=== PATIENT | female | born 1960 | race Hispanic/Latino ===

== ENCOUNTER 2016-07-09 07:58 | Day surgery (SDC) | payer OTHER ==
[2016-06-09 09:57] VITALS: BMI 25.7
[~2016-07-09 07:58] MED LIST: Bupivacaine HCl 0.5% PF (10 ml) Inj ONE; Lidocaine 2% Inj (20ml) ONE; ceFAZolin IV 1 gm in Dextrose 50 ML IVPB ONE; ceFAZolin IV 2 gm in Dextrose 0 ML IVPB ONE
[2016-07-09] MEDS ORDERED: Propofol 10 mg/ml Inj (20 ML) ONE ×2 (09:54→11:01)
[2016-07-09] MEDS ORDERED: Midazolam 2 MG/2 ML VIAL ONE (09:54)
[2016-07-09] MEDS ORDERED: Lactated Ringer's 1,000 ML IV ONE (09:55)
[2016-07-09] MEDS ORDERED: HYDROmorphone 0.5 mg/0.5 ml ISec IVP PRN ×2 (10:09→12:07)
[2016-07-09] MEDS ORDERED: Bacitracin Ointment 30 GM TUBE ONE (10:38)
[2016-07-09] MEDS ORDERED: Oxycodone/Acetaminophen 5/325 mg Tab PO PRN (11:40)
--- NOTE | 2016-07-09 11:40 | PCM.SURG1 ---
Surgeon's Initial Post Op Note - Surgeon's Notes Surgeon: Osmel ROBBINS Gear Straightener: Jarrett PGY3 Type of Anesthesia: IV Sedation, Local Pre-Operative Diagnosis: Painful bunion deformity, left foot Operative Findings: See dictation Post-Operative Diagnosis: SAME Operation Performed: Bunionectomy, left Specimen/Specimens Removed: Bone, 1st metatarsal, left Estimated Blood Loss: EBL {In ML}: 3 Blood Products Given: N/A Drains Used: No Drains Post-Op Condition: Good Date of Surgery/Procedure: 07/09/16 Time of Surgery/Procedure: 09:30
--- NOTE | 2016-07-09 11:40 | CP.PCM.PN ---
Subjective - Date & Time of Evaluation Date of Evaluation: 07/09/16 Time of Evaluation: 09:00 - Subjective Subjective: 56 y/o female presents to [facility] for surgical intervention of painful bunion deformity, left foot. Patient states that the deformity has been present for many years and causes her pain with ambulation and pressure when wearing shoegear. Patient states that pain is alleviated with rest. The patient denies any nausea, vomiting, fever, or chills. Patient states that she had the same procedure performed on her right foot a year ago. Objective - Additional Findings Additional findings: Vascular: DP and PT pulses palpable 2/4. With CFT < 3 seconds to all digits. Skin temperature is warm to warm from proximal to distal. Pedal hair growth noted. Mild rythema and edema noted to 1st MPJ. Neuro: Pain sensation intact. Protective sensation intact. (-) Tinels. Derm: No open lesions noted. Hyperkaeratotic lesion noted to medial aspect 1st metatarsal head. Diffuse xerosis noted. Musc/Biomech: Patient presents ambulating in with normal gait. Left shoulder 1 cm higher than right, with with left hip slightly slower than right during gait. Normal heel strike and heel off noted. Flexor stabilization noted to digits 2-5, B/L. Ankle joint dorsiflexion <10 degrees with knee extended, and increased with knee flexed. No pain or crepitus noted. No pain with palpation of lateral or medial ankle ligaments. Negative anterior drawer sign and no talar tild noted. STJ ROM is 20:10, Inv:Ev, without pain or crepitus. Hypermobility noted to 1st ray, patient relates no pain at 1st tarsometatarsal joint. Decreased 1st MPJ ROM with pain and no crepitus. Hard end ROM with dorsiflexion of 1st MPJ. Pain with palpation of 1st MPJ at dorsal and medical eminence. EHL muscle strength 5/5. EDL muscle strength 4/5. Flexors muscle strength 5/5. Subluxation of 1st MPJ, with lateral deviation of hallux. Subluxation of mpjs 2-5 with flexible contracture noted to PIPJs of digits 2-5. Assessment and Plan - Assessment and Plan (Free Text) Assessment: 56 y/o female seen in [facility] for surgical intervention of painful left foot bunion deformity - Patient seen and evaluated in [facility]. CHart reviewed. - Biomechanical performed. - Discussed surgical procedure with patient. Reviewed all risks, benefits, complications and alternatives to the surgical procedure. No guarantees given nor implied. - Discussed postoperative instructions with patient who verbalized understanding. - Patient is to follow up with Dr Bolivar in his office in one week. - Patient verbalized understanding.
[2016-07-09] MEDS ORDERED: Lactated Ringer's 500 ML IV ONE (12:11)
--- NOTE | 2016-07-09 12:28 | RAD ---
PROCEDURE: Left Foot Radiographs. HISTORY: s/p left foot surgery COMPARISON: None FINDINGS: BONES: Status post osteotomy fixation with metallic screw in the distal 1st metatarsal. There is moderate degenerative osteoarthrosis with reduced joint space and marginal spurring. Bone alignment and mineralization are normal. There is a large plantar calcaneal spur. JOINTS: The joint spaces are preserved. SOFT TISSUES: There is moderate soft tissue swelling in the forefoot with soft tissue defect anteriorly in the dorsum. OTHER FINDINGS: None. IMPRESSION: Status post osteotomy and fixation in the distal 1st metatarsal with a metallic screw. Moderate forefoot soft tissue swelling with a soft tissue defect anteriorly in the dorsum. Moderate degenerative osteoarthrosis in the 1st MTP joint. Large plantar calcaneal spur.
[2016-07-09 16:19] VITALS: O2SAT 100
[2016-07-09 16:20] VITALS: BP 109/77; PULSE 69; RESP 19; TEMP 98.3
--- NOTE | 2016-07-11 10:53 | OP ---
PROCEDURE DATE: 07/09/2016 SURGEON: Hank Bolivar DPM TYPE BAR AND SEGMENT ASSEMBLER: Lavern Roger, PGY-3. ANESTHESIA: IV sedation with local anesthesia. PREOPERATIVE DIAGNOSES: Hallux abductovalgus deformity/hallux limitus deformity, left foot. POSTOPERATIVE DIAGNOSES: Hallux abductovalgus deformity/hallux limitus deformity, left foot. PROCEDURE: Decompressional distal osteotomy with screw fixation, first metatarsal, left foot. INDICATIONS: The patient is a 56-year-old female with the above-mentioned diagnosis. The patient torres s exhausted all conservative treatment at this time and is now requesting surgical intervention. The patient signed the consent after careful explanation of all risks, benefits, complications and alter natives to the surgical procedure. No guarantees were given nor implied. PREPARATION: The patient was brought to the operating room, placed on the operating room table in th e supine position. A well-padded pneumatic ankle tourniquet was applied to the patient's left ankle in the supramalleolar position. After induction of IV sedation, the patient received a total of 20 m L of a 1:1 mixture 0.5% Marcaine plain in local block fashion to patient's first metatarsal. Once lo temo anesthesia was achieved, the patient's left lower extremity was then prepped and draped in usual sterile manner. At this time, the patient's left lower extremity was exsanguinated with Esmarch and pneumatic ankle tourniquet inflated to 250 mmHg and the procedure began. PROCEDURE #1: Decompressional distal osteotomy with screw fixation first metatarsal, left foot. Att ention was directed to the dorsal aspect of the patient's first metatarsophalangeal joint. Utilizing a #15 blade, a 6 cm linear longitudinal incision was created medial and parallel to the tendon of th e extensor hallucis longus involving the contour of the deformity. The incision was deepened through subcutaneous tissue with care being taken to identify and retract all vital neurovascular structures . All bleeders were cauterized and ligated as necessary. At this time, an L-type capsulotomy was cr eated overlying the first metatarsophalangeal joint. Utilizing sharp and blunt dissection, the capsu lar and periosteal tissues were carefully reflected free of their osseous attachments and reflected m edially and laterally exposing the head and shaft of the first metatarsal into the operative site. A t this time, utilizing a sagittal saw, all medial and dorsal prominences were carefully resected and passed from the operative field. Next, attention was directed to the medial side of the patient's fi rst metatarsal head where a through and through V-type osteotomy was created in the metaphyseal regio n of the patient's first metatarsal head. There was a through and through V-type osteotomy with the apex pointing distally and the pointing plantarly proximally and plantarly dorsally. The dorsa l arm was made longer to accommodate internal fixation. Also, a thin parallel cut was made to the do rsal arm to allow for a wedge of bone to be removed as well as decompression of the first metatarsoph alangeal joint. At this time, the patient's distal aspect of the osteotomy was distracted and moved laterally and then compressed onto the shaft of the first metatarsal. The first metatarsophalangeal joint was taken through a range of motion and range of motion was noted to have significantly increas ed. The osteotomy was then temporarily fixated utilizing a 0.062 K-wire and then following standard AO principles and techniques, the osteotomy was fixated utilizing a 14 mm size 16 Synthes cortical sc rew with excellent compression noted. All temporary fixation was removed. The incision site was the n flushed with copious amounts of normal sterile saline. Attention was directed to the medial bone s haft which was resected utilizing a sagittal saw and passed from the operative field. All soft tissu e was then reapproximated and coapted utilizing 3-0 and 2-0 Vicryl. The subcutaneous tissue was reap proximated and coapted utilizing 4-0 Vicryl and skin was reapproximated and coapted utilizing 4-0 nyl on in simple suture technique. The patient received a postoperative injection of 10 mL of 0.5% Anthony ine plain in local block fashion. The incision site was dressed Adaptic and DSD. POSTOPERATIVE CONDITION: The patient tolerated the procedure and anesthesia well and was escorted to recovery with all vital signs stable and neurovascular status intact to the left foot. It is to be noted that the patient will be full weightbearing in a Cam walker and will follow up with Dr. Dinora stokes in his office in 1 week. Lavern MARTINEZ Hank Bolivar DPM cc: [id number] TT: 07/11/2016 10:52:28 [facility] # [id number] rn
== END 2016-07-09 13:26 | disposition home or self-care (01) ==
LOC: C.SDS 07:58
PROVIDERS: ATTEND Podiatrist Foot & Ankle Surgery
DX: M20.12 Hallux valgus (acquired), left foot (principal); M20.5X2 Other deformities of toe(s) (acquired), left foot
CPT/HCPCS: 28296; 73620; 88304; C1713; J0690; J1885; J2250; J2704; J3010; J7120

== ENCOUNTER 2018-03-08 09:49 | Emergency (ER) | payer MEDICAID ==
[2018-03-08 09:49] VITALS: BMI 24.0
[2018-03-08 11:20] LABS: BASO # 0.1 K/uL (0.0-0.2); BASO % 0.7 % (0.0-2.0); EOS % 0.1 % (0.0-4.0); HEMOGLOBIN 12.8 g/dL (11.0-16.0); LYMPH % 15.3 % (20.0-40.0); MEAN CELL VOLUME 93.5 fL (81.0-99.0); MEAN CORPUSCULAR HEMOGLOBIN 31.9 pg (27.0-31.0); MEAN CORPUSCULAR HGB CONC 34.1 g/dL (33.0-37.0); MEAN PLATELET VOLUME 8.4 fL (7.2-11.7); MONO # 0.9 K/uL (0.0-0.8); MONO % 6.8 % (0.0-10.0); NEUT # 10.1 K/uL (1.8-7.0); NEUT % 77.1 % (50.0-75.0); RBC 4.03 Mil/uL (3.80-5.20); RED CELL DISTRIBUTION WIDTH 13.5 % (11.5-14.5); WHITE BLOOD COUNT 13.1 K/uL (4.8-10.8)
[2018-03-08 11:34] LABS: ALB/GLOB RATIO 1.4 (1.0-2.1); ALBUMIN 4.3 g/dL (3.5-5.0); ALT/SGPT 24 U/L (9-52); AST/SGOT 42 U/L (14-36); BLOOD UREA NITROGEN 23 mg/dL (7-17); CALCIUM 9.1 mg/dl (8.6-10.4); GFR NON-AFRICAN AMERICAN > 60; LIPASE 14 U/L (23-300)
--- NOTE | 2018-03-08 12:54 | C.PDOC ---
History Of Present Illness 58 years old female with PMHx of ulcer and "hole in stomach" presents to ED for complaints of epigastric pain associated with nausea, vomiting, and diarrhea that began 3 days ago. Patient states having same symptoms 2 weeks ago but she took pepto bismol and symptoms subsided then returned again. Patient also reports decreased PO intake. Denies back pain or any other complaints. Patient states she is a smoker. Past surgical hx of gallbladder removal and hand surgery. Time Seen by Provider: 03/08/18 11:22 Chief Complaint (Nursing): Abdominal Pain History Per: Patient History/Exam Limitations: no limitations Onset/Duration Of Symptoms: Days (3), Worse Since Current Symptoms Are (Timing): Still Present Location Of Pain/Discomfort: Epigastric Radiation Of Pain To:: None Quality Of Discomfort: "Pain" Associated Symptoms: Nausea, Vomiting, Diarrhea. denies: Fever, Chills Exacerbating Factors: None Alleviating Factors: None Last Bowel Movement: Today Recent travel outside of the [place]: No Abnormal Vaginal Bleeding: No Past Medical History Reviewed: Historical Data, Nursing Documentation, Vital Signs Vital Signs: Last Vital Signs Temp 98.3 F 03/08/18 10:02 Pulse 106 H 03/08/18 10:02 Resp 16 03/08/18 10:02 BP 100/68 03/08/18 10:02 Pulse Ox 97 03/08/18 10:02 - Medical History PMH: Anxiety, Arthritis, Back Problems (previous pinched nerve), Bipolar Disorder, COPD, Depression, Gall Bladder Disease, Hypothyroidism, Schizophrenia Surgical History: Cholecystectomy - [facility] GROUP PSYCHOTHERAPY (07/25/16) INTRODUCTION OF SERUM/TOX/VACCINE INTO MUSCLE, PERC APPROACH (02/12/16) Family History: States: Unknown Family Hx, Diabetes - Social History Hx Tobacco Use: Yes Hx Alcohol Use: Yes Hx Substance Use: Yes - Immunization History Hx Tetanus Toxoid Vaccination: No Hx Influenza Vaccination: Yes Hx Pneumococcal Vaccination: Yes Review Of Systems Constitutional: Negative for: Fever, Chills Gastrointestinal: Positive for: Nausea, Vomiting, Abdominal Pain (Epigastric ), Diarrhea Skin: Negative for: Rash Neurological: Negative for: Weakness, Numbness Physical Exam - Physical Exam Appears: Non-toxic, No Acute Distress Skin: Normal Color, Warm, Dry, No Rash Head: Atraumatic, Normacephalic Eye(s): bilateral: Normal Inspection, PERRL, EOMI Oral Mucosa: Moist Neck: Normal ROM, Supple Chest: Symmetrical, No Tenderness Cardiovascular: Rhythm Regular, No Murmur Respiratory: Normal Breath Sounds, No Rales, No Rhonchi, No Wheezing Gastrointestinal/Abdominal: Bowel Sounds (Active ), Soft, Tenderness (Mild epigastric ), No Distention, No Guarding, No Rebound Extremity: Normal ROM Extremity: Bilateral: Atraumatic, Normal Color And Temperature, Normal ROM Pulses: Left Radial: Normal, Right Radial: Normal Neurological/Psych: Oriented x3, Normal Speech Gait: Steady ED Course And Treatment - Laboratory Results Result Diagrams: 03/08/18 11:16 03/08/18 11:16 O2 Sat by Pulse Oximetry: 97 (RA) Pulse Ox Interpretation: Normal Medical Decision Making Medical Decision Making: Plan: * Toradol * Pepcid * Zofran * CR ABdomen& Pelvis * Blood work Disposition - Disposition Disposition Time: 14:10 Condition: STABLE Forms: [facility] (Icelandic) - Clinical Impression Clinical Impression: Abdominal wall pain - PA / WET WASH ASSEMBLER / Resident Statement MD/DO has reviewed & agrees with the documentation as recorded. - Scribe Statement The provider has reviewed the documentation as recorded by the Scribe Rashid Florence All medical record entries made by the Scribe were at my direction and personally dictated by me. I have reviewed the chart and agree that the record accurately reflects my personal performance of the history, physical exam, medical decision making, and the department course for this patient. I have also personally directed, reviewed, and agree with the discharge instructions and disposition. Physician Patient Turnover Patient Signed Over To: Anna Johnson Handoff Comments: Pending CT scan and disposition
[2018-03-08] MEDS ORDERED: Iodixanol 320 mg/ml 150 ml Bottle IV ONE (13:39)
[2018-03-08] MEDS ORDERED: Dextrose 5%/0.9% NS 1,000 ML IV ONE (14:57)
--- NOTE | 2018-03-08 16:18 | CT ---
Date of service: 03/08/2018 PROCEDURE: CT Abdomen and Pelvis with contrast HISTORY: epigastric abd pain, vomiting, diarrhea COMPARISON: None. TECHNIQUE: Contrast dose: 150 mL Visipaque 320 Radiation dose: Total exam DLP = 294.16 mGy-cm. This CT exam was performed using one or more of the following dose reduction techniques: Automated exposure control, adjustment of the mA and/or kV according to patient size, and/or use of iterative reconstruction technique. FINDINGS: LOWER THORAX: Unremarkable. LIVER: Unremarkable. No gross lesion or ductal dilatation. GALLBLADDER AND BILE DUCTS: Cholecystectomy PANCREAS: Unremarkable. No gross lesion or ductal dilatation. SPLEEN: Unremarkable. ADRENALS: Unremarkable. No mass. KIDNEYS AND URETERS: Unremarkable. No hydronephrosis. No solid mass. VASCULATURE: Unremarkable. No aortic aneurysm. There is atherosclerotic calcification of the abdominal aorta BOWEL: Unremarkable. No obstruction. No gross mural thickening. APPENDIX: Normal appendix. PERITONEUM: Unremarkable. No free fluid. No free air. LYMPH NODES: Unremarkable. No enlarged lymph nodes. BLADDER: Decompressed REPRODUCTIVE: Normal postmenopausal uterus BONES: No acute fracture. Grade 1 anterolisthesis at L4-5 likely degenerative in origin. Degenerative disc disease at L4-5 and L5-S1. OTHER FINDINGS: None. IMPRESSION: No acute abnormality. Minor findings as above.
[2018-03-08 16:19] LABS: SQUAMOUS EPITHIAL 24 /hpf (0-5); URINE BILIRUBIN 1+ (NEGATIVE); URINE BLOOD 1+ (NEGATIVE); URINE CLARITY Hazy (Clear); URINE COLOR Amber (YELLOW); URINE GLUCOSE (UA) NORMAL (Normal); URINE LEUKOCYTE ESTERASE TRACE Leu/uL (Negative); URINE PROTEIN 2+ mg/dL (NEGATIVE)
[2018-03-08 16:28] VITALS: RESP 18; TEMP 99
[2018-03-08] MEDS ORDERED: Belladonna-Phenobarbital PO STA (16:45)
[2018-03-08] MEDS ORDERED: Belladonna-Phenobarbital ONE (16:53)
[2018-03-08 17:44] VITALS: BP 111/73; PULSE 88; O2SAT 98
== END 2018-03-08 17:44 | disposition home or self-care (01) ==
LOC: C.ER 09:49
DX: R10.13 Epigastric pain (principal); F20.9 Schizophrenia, unspecified; E03.9 Hypothyroidism, unspecified; J44.9 Chronic obstructive pulmonary disease, unspecified; Z72.0 Tobacco use
CPT/HCPCS: 74177; 80053; 81001; 83690; 85025; 96374; 96375; 99285; J1885; J2405; J7042; Q9967

== ENCOUNTER 2018-04-23 17:19 | Inpatient (IN) | payer MEDICAID ==
[2018-04-23 17:19] VITALS: BMI 24.0
[2018-04-23] MEDS ORDERED: Sodium Chloride 0.9% 1,000 ML IV ONE ×2 (17:50→21:55)
[2018-04-23 18:11] LABS: BASO # 0.1 K/uL (0.0-0.2); BASO % 0.5 % (0.0-2.0); EOS % 0.1 % (0.0-4.0); HEMOGLOBIN 13.1 g/dL (11.0-16.0); LYMPH # 0.6 K/uL (1.0-4.3); LYMPH % 5.4 % (20.0-40.0); MEAN CELL VOLUME 91.9 fL (81.0-99.0); MEAN CORPUSCULAR HEMOGLOBIN 31.2 pg (27.0-31.0); MEAN PLATELET VOLUME 7.3 fL (7.2-11.7); MONO # 0.4 K/uL (0.0-0.8); MONO % 3.9 % (0.0-10.0); NEUT % 90.1 % (50.0-75.0); PLATELET COUNT 354 K/uL (130-400); RBC 4.21 Mil/uL (3.80-5.20); RED CELL DISTRIBUTION WIDTH 13.7 % (11.5-14.5); WHITE BLOOD COUNT 11.1 K/uL (4.8-10.8)
[2018-04-23 18:25] LABS: ALB/GLOB RATIO 1.5 (1.0-2.1); ALBUMIN 4.7 g/dL (3.5-5.0); ALT/SGPT 16 U/L (9-52); AST/SGOT 21 U/L (14-36); BLOOD UREA NITROGEN 13 mg/dL (7-17); CALCIUM 9.8 mg/dl (8.6-10.4); GFR NON-AFRICAN AMERICAN > 60; LIPASE 27 U/L (23-300)
--- NOTE | 2018-04-23 18:33 | C.PDOC ---
History Of Present Illness 58 year old female presents to the emergency department with complaints of two days of nausea, vomiting, and diarrhea associated with epigastrium tenderness. Patient denies chest pain. Patient has a history of COPD and feels as if her vomiting is making her condition worse. Patient denies shortness of breath. Time Seen by Provider: 04/23/18 17:42 Chief Complaint (Nursing): Abdominal Pain History Per: Patient History/Exam Limitations: no limitations Onset/Duration Of Symptoms: Days (2) Current Symptoms Are (Timing): Still Present Location Of Pain/Discomfort: Other (epigastrium) Quality Of Discomfort: "Pain" Associated Symptoms: Nausea, Vomiting. denies: Fever, Chills, Diarrhea, Chest Pain, Other (shortness of breath) Past Medical History Reviewed: Historical Data, Nursing Documentation, Vital Signs Vital Signs: Last Vital Signs Temp 98.9 F 04/23/18 17:26 Pulse 69 04/23/18 17:26 Resp 18 04/23/18 17:26 BP 160/80 H 04/23/18 17:26 Pulse Ox 100 04/23/18 17:26 - Medical History PMH: Anxiety, Arthritis, Back Problems (previous pinched nerve), Bipolar Disorder, COPD, Depression, Gall Bladder Disease, Hypothyroidism, Schizophrenia Denies: Diabetes, Hepatitis, Chronic Kidney Disease Surgical History: Cholecystectomy - [facility] GROUP PSYCHOTHERAPY (07/25/16) INTRODUCTION OF SERUM/TOX/VACCINE INTO MUSCLE, PERC APPROACH (02/12/16) Family History: States: Diabetes - Social History Hx Tobacco Use: Yes Hx Alcohol Use: Yes Hx Substance Use: Yes - Immunization History Hx Tetanus Toxoid Vaccination: No Hx Influenza Vaccination: Yes Hx Pneumococcal Vaccination: Yes Review Of Systems Except As Marked, All Systems Reviewed And Found Negative. Gastrointestinal: Positive for: Nausea, Vomiting, Abdominal Pain, Diarrhea Physical Exam - Physical Exam Appears: Non-toxic, No Acute Distress Skin: Normal Color, Warm, Dry Head: Atraumatic, Normacephalic Eye(s): bilateral: Normal Inspection, PERRL, EOMI Nose: Normal Oral Mucosa: Moist Neck: Normal, Supple Chest: Symmetrical, No Tenderness Cardiovascular: Rhythm Regular, No Murmur Respiratory: Normal Breath Sounds, No Rales, No Rhonchi, No Wheezing Gastrointestinal/Abdominal: Bowel Sounds (positive), Soft, Tenderness (epigastrium), No Guarding, No Rebound Extremity: Normal ROM Neurological/Psych: Oriented x3, Normal Speech, Normal Cognition ED Course And Treatment - Laboratory Results Result Diagrams: 04/23/18 18:04 04/23/18 18:04 Lab Results: Total Bilirubin 0.4 mg/dL (0.2-1.3) 04/23/18 18:04 AST 21 U/L (14-36) 04/23/18 18:04 ALT 16 U/L (9-52) 04/23/18 18:04 Alkaline Phosphatase 74 U/L (38-126) 04/23/18 18:04 Total Protein 7.9 g/dL (6.3-8.3) 04/23/18 18:04 Albumin 4.7 g/dL (3.5-5.0) 04/23/18 18:04 Globulin 3.2 gm/dL (2.2-3.9) 04/23/18 18:04 Albumin/Globulin Ratio 1.5 (1.0-2.1) 04/23/18 18:04 Lipase 27 U/L (23-300) 04/23/18 18:04 Interpretation Of ECG: Normal sinus rhythm at 68bpm, normal intervals, normal axis, T-wave inversion AVL V2 O2 Sat by Pulse Oximetry: 100 (RA) Pulse Ox Interpretation: Normal Medical Decision Making Medical Decision Making: Plan: CT Abdomen and Pelvis EKG Chemistry CBC Pepcid 20mg IVP NaCl IV Fluids Toradol 30mg IVP Zofran 4mg IVP Urinalysis Assessment: Abdominal Pain Disposition - Disposition Disposition Time: 19:00 Condition: FAIR Forms: [facility] (South Sudanese) - Clinical Impression Clinical Impression: Abdominal pain - Scribe Statement The provider has reviewed the documentation as recorded by the Scribe (Arpit Hudson) Provider Attestation: All medical record entries made by the Scribe were at my direction and personally dictated by me. I have reviewed the chart and agree that the record accurately reflects my personal performance of the history, physical exam, medical decision making, and the department course for this patient. I have also personally directed, reviewed, and agree with the discharge instructions and disposition. Physician Patient Turnover Patient Signed Over To: Geeta Suazo Handoff Comments: ct scan, reevaluation and disposition
[2018-04-23 18:37] LABS: B-TYPE NATRIURETIC PEPTIDE 787 pg/mL (0-900)
[2018-04-23] MEDS ORDERED: Iohexol 300 100 ML IJ ONE (18:39)
[2018-04-23] MEDS ORDERED: Lidocaine 80 MG in Sodium Chloride 0.9% 100 ML IV STA (18:59)
[2018-04-23 19:01] LABS: LYMPHOCYTE 5 % (20-40); MONOCYTE 4 % (0-10); NEUTROPHIL 90 % (50-75); PLATELET ESTIMATE NORMAL (NORMAL); REACTIVE LYMPHOCYTES 1 % (0-0); TOTAL CELLS COUNTED 100
[2018-04-23] MEDS ORDERED: Sodium Chloride 0.9% 1,000 ML ONE (22:10)
[2018-04-24 00:06] LABS: SQUAMOUS EPITHIAL < 1 /hpf (0-5); URINE BILIRUBIN NEGATIVE (NEGATIVE); URINE BLOOD NEGATIVE (NEGATIVE); URINE CLARITY Clear (Clear); URINE COLOR Straw (YELLOW); URINE GLUCOSE (UA) NORMAL (Normal); URINE LEUKOCYTE ESTERASE NEG Leu/uL (Negative); URINE PROTEIN NEGATIVE (NEGATIVE); URINE UROBILINOGEN NORMAL mg/dL (0.2-1.0)
--- NOTE | 2018-04-24 00:38 | CP.PCM.HP ---
<Kolton Herbert - Last Filed: 04/24/18 07:54> History of Present Illness - History of Present Illness History of Present Illness: H&P note for Dr Jensen service cc: Vomiting Patient is a 58 year old female with past medical history of COPD, depression and arthritis that came to the ED today for multiple episodes of vomiting and epigastric pain that started two days ago. Patient states has vomited 30-40 times in the past two days, mostly water and food content with yellow liquid, and small spots of blood noticed today. Patient says that anything she eats or drinks, she vomits. Patient has tried drinking gatorade, but has not helped. Patient reports 4 episodes of soft, brown diarrhea today. Patient denies drinking alcohol since new . Denies eating anything unusual in the past days. Patient denies any sick contacts or recent sickness. Admits to weight loss of 10 pounds in the las month. Admits to subjective fever and chills, denies headache, chest pain, shortness of breath, blood in urine or stool, urinary symptoms like burning, pain at urination, or leg swelling or pain. PMD: Patrica All: NKDA MEds: none, used to take xanax, zoloft and seroquel, no longer taking Pmhx: COPD, depression, arthritis shx: cholecystectomy (10 years ago) Fmhx: none Sochx: 3-4 cigarettes a day x 40 years (used to smoke 1 pack a day), social alcohol use (last time was ), denies drug use Present on Admission - Present on Admission Any Indicators Present on Admission: No Review of Systems - Review of Systems All systems: reviewed and no additional remarkable complaints except Review of Systems: as stated in HPI Past Patient History - Past Medical History & Family History Past Medical History?: Yes - Past Social History Smoking Status: Heavy Smoker > 10 Cigarettes Daily - PULMONARY Hx Chronic Obstructive Pulmonary Disease (COPD): Yes - HEENT Hx HEENT Problems: No - RENAL Hx Chronic Kidney Disease: No - ENDOCRINE/METABOLIC Hx Hypothyroidism: Yes - INTEGUMENTARY Hx Dermatological Problems: No - MUSCULOSKELETAL/RHEUMATOLOGICAL Hx Arthritis: Yes - GASTROINTESTINAL Hx Gall Bladder Disease: Yes - PSYCHIATRIC Hx Anxiety: Yes Hx Bipolar Disorder: Yes Hx Depression: Yes Hx Schizophrenia: Yes Hx Substance Use: Yes - SURGICAL HISTORY Hx Cholecystectomy: Yes - ANESTHESIA Hx Anesthesia: Yes Hx Anesthesia Reactions: No Hx Malignant Hyperthermia: No Meds Allergies/Adverse Reactions: Allergies Allergy/AdvReac Type Severity Reaction Status Date / Time No Known Allergies Allergy Verified 04/23/18 17:36 Physical Exam - Constitutional Appears: Non-toxic, No Acute Distress - Head Exam Head Exam: ATRAUMATIC, NORMAL INSPECTION, NORMOCEPHALIC - Eye Exam Eye Exam: EOMI, Normal appearance - ENT Exam ENT Exam: Mucous Membranes Dry - Neck Exam Neck exam: Positive for: Normal Inspection - Respiratory Exam Respiratory Exam: Clear to Auscultation Bilateral, NORMAL BREATHING PATTERN. absent: Rales, Rhonchi, Wheezes - Cardiovascular Exam Cardiovascular Exam: Tachycardia, REGULAR RHYTHM, +S1, +S2 - GI/Abdominal Exam GI & Abdominal Exam: Guarding, Normal Bowel Sounds, Soft, Tenderness (right upper quadrant and epigastric area ) - Extremities Exam Extremities exam: Positive for: full ROM, normal inspection, pedal pulses present. Negative for: pedal edema, tenderness - Back Exam Back exam: CVA tenderness (R), FULL ROM, NORMAL INSPECTION. absent: CVA tenderness (L) - Neurological Exam Neurological exam: Alert, Oriented x3 - Psychiatric Exam Psychiatric exam: Anxious - Skin Skin Exam: Dry, Intact, Normal Color Results - Vital Signs Recent Vital Signs: Last Vital Signs Temp 98.9 F 04/23/18 23:52 Pulse 88 04/23/18 23:52 Resp 18 04/23/18 23:52 BP 165/85 H 04/23/18 23:52 Pulse Ox 98 04/23/18 23:52 - Labs Result Diagrams: 04/23/18 18:04 04/23/18 18:04 Labs: Laboratory Results - last 24 hr 04/23/18 04/23/18 04/23/18 18:04 18:04 23:52 WBC 11.1 H RBC 4.21 Hgb 13.1 Hct 38.6 MCV 91.9 MCH 31.2 H MCHC 34.0 RDW 13.7 Plt Count 354 MPV 7.3 Neut % (Auto) 90.1 H Lymph % (Auto) 5.4 L Posey % (Auto) 3.9 Eos % (Auto) 0.1 Baso % (Auto) 0.5 Neut # (Auto) 10.0 H Lymph # (Auto) 0.6 L Posey # (Auto) 0.4 Eos # (Auto) 0.0 Baso # (Auto) 0.1 Neutrophils % (Manual) 90 H Lymphocytes % (Manual) 5 L Reactive Lymphs % 1 H Monocytes % (Manual) 4 Platelet Estimate Normal RBC Morphology Normal Sodium 141 Potassium 3.7 Chloride 104 Carbon Dioxide 28 Anion Gap 13 BUN 13 Creatinine 0.8 Est GFR ( Amer) > 60 Est GFR (Non-Af Amer) > 60 Random Glucose 127 H Calcium 9.8 Total Bilirubin 0.4 AST 21 ALT 16 Alkaline Phosphatase 74 Troponin I < 0.0120 NT-Pro-B Natriuret Pep 787 Total Protein 7.9 Albumin 4.7 Globulin 3.2 Albumin/Globulin Ratio 1.5 Lipase 27 Urine Color Straw Urine Clarity Clear Urine pH 6.0 Ur Specific [place] 1.041 H Urine Protein Negative Urine Glucose (UA) Normal Urine Ketones Trace Urine Blood Negative Urine Nitrate Negative Urine Bilirubin Negative Urine Urobilinogen Normal Ur Leukocyte Esterase Neg Urine WBC (Auto) < 1 Urine RBC (Auto) 3 Ur Squamous Epith Cells < 1 Assessment & Plan - Assessment and Plan (Free Text) Plan: Vomiting, diffuse abdominal pain possible due to enteritis - WBC at ED 11.1 - afebrile - CT Abd/pelvis: prelim report- thicked wall fluid filled duodenum an dloops of jejunum compatible with enteritis - f/u official report - Toradol 30mg STAT given in ED - Zofran 4mg x 2 doses given at ED, [place] 10mg IVP given at ED - Protonix 40mg IVP Q12H - Zofran 4mg Q8H PRN for nausea - Will follow up am labs Dehydration - possible from vomiting/diarrhea - U/A: specific gravity 1.041 - Potassium Chloride 20 meq in D5W @ 124 cc/hr Anxiety - Ativan 1mg IVP x 1 given in ED - Ativan 1mg IVP x 1 hx of alcohol use - not recent use - Ativan 1mg IVP x 1 - Thiamine 100mg IV x 1 hx of depression - not on medications at this time - consider psych consult hx of arthritis - not complaining at this time - tylenol PRN for pain ppx - DVT ppx: SCDS - GI : protonix 40mg IV Q12H - Clear liquid diet Plan discussed with Dr Mikey Herbert - Date & Time Date: 04/23/18 Time: 22:00 <Jeffery Jensen P - Last Filed: 04/24/18 08:14> Results - Vital Signs Recent Vital Signs: Last Vital Signs Temp 98.6 F 04/24/18 06:30 Pulse 87 04/24/18 06:30 Resp 20 04/24/18 07:38 BP 105/52 L 04/24/18 06:30 Pulse Ox 99 04/24/18 07:38 - Labs Result Diagrams: 04/24/18 07:41 04/24/18 07:41 Labs: Laboratory Results - last 24 hr 04/23/18 04/23/18 04/23/18 18:04 18:04 23:52 WBC 11.1 H RBC 4.21 Hgb 13.1 Hct 38.6 MCV 91.9 MCH 31.2 H MCHC 34.0 RDW 13.7 Plt Count 354 MPV 7.3 Neut % (Auto) 90.1 H Lymph % (Auto) 5.4 L Posey % (Auto) 3.9 Eos % (Auto) 0.1 Baso % (Auto) 0.5 Neut # (Auto) 10.0 H Lymph # (Auto) 0.6 L Posey # (Auto) 0.4 Eos # (Auto) 0.0 Baso # (Auto) 0.1 Neutrophils % (Manual) 90 H Lymphocytes % (Manual) 5 L Reactive Lymphs % 1 H Monocytes % (Manual) 4 Platelet Estimate Normal RBC Morphology Normal Sodium 141 Potassium 3.7 Chloride 104 Carbon Dioxide 28 Anion Gap 13 BUN 13 Creatinine 0.8 Est GFR ( Amer) > 60 Est GFR (Non-Af Amer) > 60 Random Glucose 127 H Calcium 9.8 Phosphorus Magnesium Total Bilirubin 0.4 AST 21 ALT 16 Alkaline Phosphatase 74 Troponin I < 0.0120 NT-Pro-B Natriuret Pep 787 Total Protein 7.9 Albumin 4.7 Globulin 3.2 Albumin/Globulin Ratio 1.5 Lipase 27 Urine Color Straw Urine Clarity Clear Urine pH 6.0 Ur Specific [place] 1.041 H Urine Protein Negative Urine Glucose (UA) Normal Urine Ketones Trace Urine Blood Negative Urine Nitrate Negative Urine Bilirubin Negative Urine Urobilinogen Normal Ur Leukocyte Esterase Neg Urine WBC (Auto) < 1 Urine RBC (Auto) 3 Ur Squamous Epith Cells < 1 04/24/18 04/24/18 07:41 07:41 WBC 7.6 RBC 3.58 L Hgb 11.5 Hct 33.7 L MCV 94.2 D MCH 32.2 H MCHC 34.2 RDW 13.8 Plt Count 291 MPV 7.4 Neut % (Auto) 68.3 Lymph % (Auto) 18.6 L Posey % (Auto) 11.8 H Eos % (Auto) 0.1 Baso % (Auto) 1.2 Neut # (Auto) 5.2 Lymph # (Auto) 1.4 Posey # (Auto) 0.9 H Eos # (Auto) 0.0 Baso # (Auto) 0.1 Neutrophils % (Manual) Lymphocytes % (Manual) Reactive Lymphs % Monocytes % (Manual) Platelet Estimate RBC Morphology Sodium 138 Potassium 3.6 Chloride 107 Carbon Dioxide 26 Anion Gap 10 BUN 8 Creatinine 0.6 L Est GFR ( Amer) > 60 Est GFR (Non-Af Amer) > 60 Random Glucose 97 D Calcium 8.7 Phosphorus 3.1 Magnesium 1.8 Total Bilirubin 0.3 AST 20 ALT 22 Alkaline Phosphatase 55 Troponin I NT-Pro-B Natriuret Pep Total Protein 6.6 Albumin 3.9 Globulin 2.7 Albumin/Globulin Ratio 1.4 Lipase Urine Color Urine Clarity Urine pH Ur Specific [place] Urine Protein Urine Glucose (UA) Urine Ketones Urine Blood Urine Nitrate Urine Bilirubin Urine Urobilinogen Ur Leukocyte Esterase Urine WBC (Auto) Urine RBC (Auto) Ur Squamous Epith Cells Attending/Attestation - Attestation I have personally seen and examined this patient.: Yes I have fully participated in the care of the patient.: Yes I have reviewed all pertinent clinical information: Yes Notes (Text): 04/24/18 08:12 Acute severe GE, more of gastric symptoms vomiting, leading to dehydration. Plan IVF, PPI iv bid, prn zofran Clear liquids as tolerated PRN ativan assist antinausea effect and reduce anxiety See orders for detail.
[2018-04-24] MEDS ORDERED: Thiamine 100 mg/ml Inj IV ONE (00:56)
[2018-04-24] MEDS: Potassium Ch 20mEq in D5W 1,000 ML IV SCH ×3 (01:24→17:25)
[2018-04-24] MEDS ORDERED: Albuterol-Ipratrop 3 mg / 0.5 (3 ml) UD ONE ×2 (06:32→15:34)
[2018-04-24] MEDS: Albuterol-Ipratrop 3 mg / 0.5 (3 ml) UD INH PRN ×2 (06:51→15:45)
[2018-04-24 07:51] LABS: BASO # 0.1 K/uL (0.0-0.2); BASO % 1.2 % (0.0-2.0); EOS % 0.1 % (0.0-4.0); HEMOGLOBIN 11.5 g/dL (11.0-16.0); LYMPH # 1.4 K/uL (1.0-4.3); LYMPH % 18.6 % (20.0-40.0); MEAN CORPUSCULAR HEMOGLOBIN 32.2 pg (27.0-31.0); MEAN CORPUSCULAR HGB CONC 34.2 g/dL (33.0-37.0); MEAN PLATELET VOLUME 7.4 fL (7.2-11.7); MONO # 0.9 K/uL (0.0-0.8); MONO % 11.8 % (0.0-10.0); NEUT # 5.2 K/uL (1.8-7.0); NEUT % 68.3 % (50.0-75.0); RBC 3.58 Mil/uL (3.80-5.20); RED CELL DISTRIBUTION WIDTH 13.8 % (11.5-14.5); WHITE BLOOD COUNT 7.6 K/uL (4.8-10.8)
[2018-04-24 08:07] LABS: ALB/GLOB RATIO 1.4 (1.0-2.1); ALBUMIN 3.9 g/dL (3.5-5.0); ALT/SGPT 22 U/L (9-52); AST/SGOT 20 U/L (14-36); BLOOD UREA NITROGEN 8 mg/dL (7-17); CALCIUM 8.7 mg/dl (8.6-10.4); GFR NON-AFRICAN AMERICAN > 60; MEAN CELL VOLUME 94.2 fL (81.0-99.0)
[2018-04-24] MEDS: guaiFENesin 600 mg ER Tab PO SCH ×2 (10:17→18:21)
--- NOTE | 2018-04-24 10:44 | CT ---
Date of service: 04/23/2018 PROCEDURE: CT Abdomen and Pelvis with contrast HISTORY: Abdominal pain COMPARISON: 03/08/2018 TECHNIQUE: CT scan of the abdomen and pelvis was performed after administration of intravenous contrast. Oral contrast was not administered. Coronal and sagittal reformatted images were obtained. Contrast dose: 100 mL Visipaque 320 Radiation dose: Total exam DLP = 348.16 mGy-cm. This CT exam was performed using one or more of the following dose reduction techniques: Automated exposure control, adjustment of the mA and/or kV according to patient size, and/or use of iterative reconstruction technique. FINDINGS: LOWER THORAX: The visualized lungs are clear. LIVER: Normal in size with homogeneous enhancement. No gross lesion or ductal dilatation. GALLBLADDER AND BILE DUCTS: Surgically absent. PANCREAS: Normal in size with homogeneous enhancement. No gross lesion or ductal dilatation. SPLEEN: Normal in size and appearance. ADRENALS: No discrete nodule. Thickening of the left adrenal gland. KIDNEYS AND URETERS: Normal in size with homogeneous enhancement. Punctate nonobstructing stone in the lower pole of the right kidney. No hydronephrosis. No solid mass. VASCULATURE: No aortic aneurysm. BOWEL: Evaluation of the bowel is limited in the absence of oral contrast. The small bowel loops are normal in caliber. There is segmental increased density in the distal small bowel loops in the pelvis. There is gaseous distension of the cecum and proximal ascending colon. The remaining colon is decompressed. No bowel wall thickening or obstruction. APPENDIX: Normal appendix. PERITONEUM: No free fluid. No free air. LYMPH NODES: No enlarged lymph nodes. BLADDER: Decompressed. REPRODUCTIVE: The uterus is normal in size. BONES: No acute fracture. Multilevel degenerative disc disease and degenerative grade 1 anterior listhesis of L4 on L5. OTHER FINDINGS: None. IMPRESSION: No acute abdominal or pelvic abnormality. Segmental increased density in the distal small bowel loops in the pelvis is nonspecific. Correlation with oral contrast material ingestion or a surgical intervention is recommended and clinical follow-up is advised.
[2018-04-24] MEDS: Enoxaparin 40 mg Syringe SC SCH (12:17)
[2018-04-24] MEDS ORDERED: Enoxaparin 40 mg Syringe ONE (12:18)
--- NOTE | 2018-04-24 18:23 | CP.PCM.PN ---
Subjective - Date & Time of Evaluation Date of Evaluation: 04/24/18 Time of Evaluation: 18:20 - Subjective Subjective: Medicine Progress Note - Dr Adam Morrell's service Patient seen and examined at bedside. Per nursing no acute events overnight. Patient reports having multiple episodes of vomiting and diarrhea. Last episode of vomiting was this morning. She states that she did have lao food 3 nights ago. Patient also complaining of shortness of breath and cough that is different from her baseline cough. She only uses an albuterol inhaler at home. She states that she has fallen at least 3 times within the last week. She states that she feels like her legs are giving out on her. She reports hitting the right side of her head 1 week ago after falling at home. Offers no other complaints at this time. Objective - Vital Signs/Intake and Output Vital Signs (last 24 hours): Temp Pulse Resp BP Pulse Ox 99.3 F 88 20 133/86 98 04/24/18 14:04/24/18 14:04/24/18 14:04/24/18 14:04/24/18 14:01 - Medications Medications: Current Medications Acetaminophen (Tylenol 325mg Tab) 650 mg PO Q6 PRN PRN Reason: Pain, moderate (4-7) Last Admin: 04/24/18 12:17 Dose: 650 mg Albuterol/Ipratropium (Duoneb 3 Mg/0.5 Mg (3 Ml) Ud) 3 ml INH RQ6 PRN PRN Reason: Shortness of Breath Last Admin: 04/24/18 15:45 Dose: 3 ml Alprazolam (Xanax) 0.25 mg PO DAILY PRN PRN Reason: Anxiety Stop: 05/01/18 17:31 Enoxaparin Sodium (Lovenox) 40 mg SC DAILY VINCE Last Admin: 04/24/18 12:17 Dose: 40 mg Guaifenesin (Mucinex La) 600 mg PO BID VINCE Last Admin: 04/24/18 10:17 Dose: 600 mg Potassium Chloride/Dextrose (Potassium Chl 20 Meq In D5w) 1,000 mls @ 125 mls/hr IV .Q8H VINCE Last Admin: 04/24/18 17:25 Dose: 125 mls/hr Nicotine (Nicoderm Cq) 1 patch TD DAILY VINCE Last Admin: 04/24/18 17:34 Dose: 1 patch Ondansetron HCl (Zofran Inj) 4 mg IVP Q8 PRN PRN Reason: Nausea/Vomiting Last Admin: 04/24/18 17:30 Dose: 4 mg Pantoprazole Sodium (Protonix Inj) 40 mg IVP Q12H [facility] Last Admin: 04/24/18 13:28 Dose: 40 mg Quetiapine Fumarate (Seroquel) 200 mg PO HS [facility] Sertraline HCl (Zoloft) 100 mg PO DAILY [facility] Last Admin: 04/24/18 15:11 Dose: 100 mg - Labs Labs: 04/24/18 07:41 04/24/18 07:41 - Constitutional Appears: Non-toxic, No Acute Distress - Head Exam Head Exam: ATRAUMATIC, NORMAL INSPECTION, NORMOCEPHALIC Additional comments: +small area of soft tissue swelling over right side of her forehead - Eye Exam Eye Exam: EOMI, Normal appearance Pupil Exam: NORMAL ACCOMODATION - ENT Exam ENT Exam: Mucous Membranes Moist - Respiratory Exam Respiratory Exam: Wheezes (throughout), NORMAL BREATHING PATTERN. absent: Rales, Rhonchi - Cardiovascular Exam Cardiovascular Exam: REGULAR RHYTHM, +S1, +S2 - GI/Abdominal Exam GI & Abdominal Exam: Soft. absent: Guarding, Rigid, Tenderness - Extremities Exam Extremities Exam: Calf Tenderness, Normal Inspection - Neurological Exam Neurological Exam: Alert, Awake, Normal Gait (Per nursing, patient ambulating without difficulty), Oriented x3 - Psychiatric Exam Psychiatric exam: Normal Affect, Normal Mood - Skin Skin Exam: Dry, Normal Color, Warm Assessment and Plan - Assessment and Plan (Free Text) Assessment: Intractable vomiting and diarrhea -Afebrile, no leukocytosis -Continue IVF hydration -Advance diet as tolerated -Zofran 4mg Q8H prn nausea -Tylenol 650mg PO Q6H prn fevers -Monitor electrolytes with serial BMPs -Stool studies ordered (stool leukocytes, ova/parasites) -CT abdomen and pelvis w/ IV contrast: No acute abdominal or pelvic abnormality. Segmental increased density in the distal small bowel loops in the pelvis is nonspecific. Correlation with oral contrast material ingestion or a surgical intervention is recommended and clinical follow-up is advised (see full report) Distal small bowel loop density -This finding on CT scan is nonspecific -If vomiting resolves, we will repeat CT abd/pelvis with PO contrast tomorrow 04/25/18 -Patient can also have study done outpatient Shortness of breath likely 2/2 COPD exacerbation -CXR PA/LAT ordered, no infiltrates visualized, awaiting official report -We give Solu-medrol 125mg IVP x 1 dose now -Continue Solu-medrol 40mg Q8H IVP -Duonebs Q6H VINCE x 4 doses -Start Breo-ellipta 1 puff daily -Continue Mucinex 600mg PO BID for cough -Pulmonology on consult, Dr Martinez, help appreciated Tobacco abuse -Patient reports smoking 2-3 cigarettes a day -Requesting nicotine patch Bilateral lower extremity weakness -Patient reports that her legs have been giving out on her; had 3 falls within the last week -Reports that she hit her head 1 week ago -CT head w/o contrast ordered -We will order Vitamin B12 and folate levels -Physical therapy evaluation ordered History of anxiety and depression -Medications confirmed with pharmacy ([facility] [address] in [place]) -Started Xanax 0.25mg PO daily prn anxiety -Seroquel 200mg PO HS, Zoloft 100mg PO daily GI/DVT ppx: Protonix 40mg IVP BID Lovenox 40mg SC daily DISPO: We will ambulate the patient tomorrow and measure O2 sats. If breathing is stable, we will likely discharge tomorrow. Patient to follow with her PMD, Dr Lopez upon discharge. Plan discussed with Dr Adam Wei DO PGY-2
[2018-04-24] MEDS: Albuterol-Ipratrop 3 mg / 0.5 (3 ml) UD INH SCH (20:22)
--- NOTE | 2018-04-24 21:35 | CT ---
Date of service: 04/24/2018 PROCEDURE: CT HEAD WITHOUT CONTRAST. HISTORY: s/p head trauma COMPARISON: None. TECHNIQUE: Axial computed tomography images were obtained through the head/brain without intravenous contrast. Radiation dose: Total exam DLP = 1515.89 mGy-cm. This CT exam was performed using one or more of the following dose reduction techniques: Automated exposure control, adjustment of the mA and/or kV according to patient size, and/or use of iterative reconstruction technique. FINDINGS: HEMORRHAGE: No intracranial hemorrhage. BRAIN: [place]-white matter differentiation is preserved. There is no mass, mass effect or abnormal extra-axial fluid collection. There is no territorial infarction. The midline sagittal structures are normal. VENTRICLES: The ventricles are normal in size, shape and configuration. CALVARIUM: There is no calvarial fracture or extracranial soft tissue swelling. PARANASAL SINUSES: Chronic pansinusitis, worse in the left maxillary and sphenoid sinuses. MASTOID AIR CELLS: Predominantly clear. OTHER FINDINGS: None. IMPRESSION: No acute intracranial abnormality. A preliminary report was provided by [employer].
--- NOTE | 2018-04-24 21:40 | RAD ---
Date of service: 04/24/2018 HISTORY: Shortness of breath COMPARISON: No prior. TECHNIQUE: Chest PA and lateral FINDINGS: LINES AND TUBES: None. LUNG AND PLEURA: The lungs are well inflated and clear. No pleural effusion or pneumothorax. HEART AND MEDIASTINUM: The heart is not enlarged. There are aortic atherosclerotic calcifications present. The hilar and mediastinal contours are within normal limits. SKELETAL STRUCTURES: The bony structures are within normal limits for the patient's age. VISUALIZED UPPER ABDOMEN: Normal. OTHER FINDINGS: None. IMPRESSION: No active pulmonary disease.
[2018-04-25] MEDS: Albuterol-Ipratrop 3 mg / 0.5 (3 ml) UD INH SCH ×3 (01:24→13:35)
[2018-04-25] MEDS: Potassium Ch 20mEq in D5W 1,000 ML IV SCH ×2 (02:35→10:30)
[2018-04-25] MEDS ORDERED: Fluticasone-Vilanterol 100/25mcg Diskus INH SCH (08:00)
[2018-04-25 08:35] LABS: BASO # 0.1 K/uL (0.0-0.2); BASO % 1.4 % (0.0-2.0); HEMOGLOBIN 12.3 g/dL (11.0-16.0); LYMPH # 0.9 K/uL (1.0-4.3); LYMPH % 14.5 % (20.0-40.0); MEAN CELL VOLUME 94.1 fL (81.0-99.0); MEAN CORPUSCULAR HEMOGLOBIN 31.9 pg (27.0-31.0); MEAN CORPUSCULAR HGB CONC 33.9 g/dL (33.0-37.0); MEAN PLATELET VOLUME 7.5 fL (7.2-11.7); MONO # 0.4 K/uL (0.0-0.8); MONO % 5.9 % (0.0-10.0); NEUT # 4.9 K/uL (1.8-7.0); NEUT % 78.2 % (50.0-75.0); RBC 3.86 Mil/uL (3.80-5.20); RED CELL DISTRIBUTION WIDTH 13.7 % (11.5-14.5); WHITE BLOOD COUNT 6.2 K/uL (4.8-10.8)
[2018-04-25 08:55] LABS: ALB/GLOB RATIO 1.5 (1.0-2.1); ALBUMIN 4.3 g/dL (3.5-5.0); ALT/SGPT 17 U/L (9-52); AST/SGOT 20 U/L (14-36); BLOOD UREA NITROGEN 8 mg/dL (7-17); CALCIUM 9.5 mg/dl (8.6-10.4); GFR NON-AFRICAN AMERICAN > 60
[2018-04-25 09:12] VITALS: BP 159/80; PULSE 92; RESP 22; TEMP 98.4; O2SAT 100
[2018-04-25] MEDS: Enoxaparin 40 mg Syringe SC SCH (09:58)
[2018-04-25] MEDS: guaiFENesin 600 mg ER Tab PO SCH (09:59)
[2018-04-25 10:00] LABS: FOLATE 13.5 ng/mL
[2018-04-25] MEDS ORDERED: MethylPREDNISolone 40 mg Vial IVP SCH (10:00)
[2018-04-25] MEDS ORDERED: Iohexol 240 (50 ml) PO ONE (10:00)
--- NOTE | 2018-04-25 13:17 | CT ---
Date of service: 04/25/2018 PROCEDURE: CT Abdomen and Pelvis with contrast HISTORY: Abdominal pain COMPARISON: 04/23/2018 TECHNIQUE: CT scan of the abdomen and pelvis was performed without administration of intravenous contrast. Oral contrast was administered. Coronal and sagittal reformatted images were obtained. Radiation dose: Total exam DLP = 243.32 mGy-cm. This CT exam was performed using one or more of the following dose reduction techniques: Automated exposure control, adjustment of the mA and/or kV according to patient size, and/or use of iterative reconstruction technique. FINDINGS: LOWER THORAX: The visualized lungs are clear. LIVER: Normal in size. No gross lesion or ductal dilatation. GALLBLADDER AND BILE DUCTS: Surgically absent. PANCREAS: Normal in size. No gross lesion or ductal dilatation. SPLEEN: Normal in size. ADRENALS: No discrete nodule. KIDNEYS AND URETERS: Normal in size. No hydronephrosis. No solid mass. VASCULATURE: No aortic aneurysm. There are no aortic atherosclerotic calcifications or mural plaque present. BOWEL: There is mild dilatation of proximal small bowel loops with prominence folds. The mid and distal small bowel loops are normal in caliber. The colon is grossly normal in appearance. No bowel wall thickening or obstruction. APPENDIX: Normal appendix. PERITONEUM: No free fluid. No free air. LYMPH NODES: No enlarged lymph nodes. BLADDER: Well distended and normal in appearance. REPRODUCTIVE: The uterus is normal in size. BONES: No acute fracture. Multilevel degenerative changes with degenerative grade 1 anterior listhesis of L3 on L5. OTHER FINDINGS: There is a small sliding hiatal hernia. IMPRESSION: Mild dilatation of proximal small bowel loops with prominence folds which may represent non specific acute infectious/inflammatory enteritis.No obstruction.
--- NOTE | 2018-04-25 14:05 | CP.PCM.PN ---
Subjective - Date & Time of Evaluation Date of Evaluation: 04/25/18 Time of Evaluation: 13:45 - Subjective Subjective: Hospitalist Progress Note Patient was seen and examined at 1:45 PM 04/25/18 She was able to have juice and water earlier today without any issues of nausea/vomiting however the contrast for the CT Abdomen/Pelvis did make her nauseous and she vomited it up after the study was performed. Currently there is NO longer any nausea, vomiting, or abdominal pain and states that she feels a lot better than when she came in She is also not as nervous/anxious as when she first came in She states that the Gabapentin helped her with her restless leg syndrome when it was given together with the Seroquel last night There are no other complaints upon FULL ROS General: AAOx3, NAD, She is speaking in full sentences and there are NO signs of respiratory distress HEENT: NCA, EOMI, PERRLA, NO cervical/supraclavicular/submandibular lymphadenopa thy, NO pharyngeal erythema/exudate, NO thyromegaly Cardio: NS1 and NS2, NO M/R/G Resp: Faint expiratory wheezing noted in the bilateral basilar area much improved from exam in ER on 04/24/18 GI: BSx4, Soft, NO HSM, NO guarding/rebound tenderness, ND, NT Ext: Pulses are strong and equal, Capillary refill is 2 seconds, NO edema, Normal color, NO cyanosis, Normal temperature Neuro: CN II through XII are grossly intact Assessments: 1). N/V Likely Secondary to SSRI Withdrawl (she stopped taking her Zoloft completely 5 days ago as she ran out) 2). Nicotine Addiction 3). Weight Loss (10 pounds in the last month: needs outpatient Mammogram, Pap Smear and states she had normal Colonoscopy 1 year ago) 4). COPD exacerbation (not on any maintenance medication at home and only uses albuterol inhaler as needed and she continues to smoke 3 to 4 cigarettes a day) 5). Hx Depression (NO suicide ideation or thoughts of hurting anyone else) 6). Hx Recent Falls (could be secondary to SSRI Withdrawl as can cause unsteadiness on legs) CT Head did not show any acute process Chest X Ray did not show any acute process CT Abdomen/Pelvis showed mild dilatation of the proximal small bowel loops with prominence folds which may represent nonspecific acute infectious/inflammatory enteritis, NO obstructions Patient is tolerating clear liquids, repeat CT Abdomen/Pelvis with PO contrast did not show any obstruction or mass, respiratory exam is improved. She is stable for further management as an outpatient. The following instructions were explained to the patient and a copy will need to be provided to her upon discharge: 1). Please schedule appointment with your primary care physician Dr. Arnold to occur later this week for further management of your health care. 2). Through Dr. Arnold you will need a referral for Co Founder & Ceo for CLINICAL TRIALS SYSTEMS ADMINISTRATOR exam, Pap Smear, and Mammogram. 3). Follow up for Colonoscopy as instructed by your Event Promoter. 4). Schedule appointment with the [facility] located at [address] [place] [address] [place] [address] by calling [phone]. Call them tomorrow to schedule the next available appointment so that you can be followed by a Psychiatrist. 5). For the next few days have a bland diet and stay on liquids such as chicken or beef broth, jello, mixture of gatorade and water and then advance your diet slowly. You may also have some eggs. 6). The following medications will need to be filled at your pharmacy on your way home from the hospital: Albuterol 90 mcg/actuation, 2 PO Inhalation every 6 hours only as needed for se mone shortness of breath, #1 Breo Ellipta 100/25 mcg, 1 PO Inhalation 1x/day (8 AM), #1 Gabapentin 100 mg, 1 tablet by mouth at bedtime (10 PM), #30 Omeprazole 40 mg, 1 tablet by mouth 1x/day (8 AM), #30 Seroquel 200 mg, 1 tablet by mouth (10 PM), #30 Sertraline 100 mg, 1 tablet by mouth (8 AM), #30 Alprazolam 0.5 mg, 1 tablet by mouth every 12 hours ONLY as needed for Anxiety, #15 Prednisone 10 mg, 5 tablets by mouth at once at 8 AM on 04/26/18, 4 tablets by mouth at once at 8 AM on 04/27/18, 3 tablets by mouth at once at 8 AM on 04/28/18, 2 tablets by mouth at once on 04/29/18, and 1 tablet by mouth at once at 8 AM on 1/18/19, Dispense #15 7). You must stop smoking. Call for resources in your area to help you stop smoking. If you do NOT then your COPD will get worse not to mention the Acid Reflux. As you already know it can lead to cancer as well. So please call the number for help. 8). Believe in yourself. You are stronger than you give yourself credit for. 9). Please take care and be well. Vladimir Morrell D.O. Objective - Vital Signs/Intake and Output Vital Signs (last 24 hours): Temp Pulse Resp BP Pulse Ox 98.4 F 92 H 22 159/80 H 100 04/25/18 09:10 04/25/18 12:29 04/25/18 09:10 04/25/18 09:10 04/25/18 12:29 Intake and Output: 04/25/18 04/25/18 06:59 18:59 Intake Total 375 Balance 375 - Medications Medications: Current Medications Acetaminophen (Tylenol 325mg Tab) 650 mg PO Q6 PRN PRN Reason: Pain, moderate (4-7) Last Admin: 04/24/18 18:21 Dose: 650 mg Albuterol/Ipratropium (Duoneb 3 Mg/0.5 Mg (3 Ml) Ud) 3 ml INH RQ6 [facility] Stop: 04/25/18 14:01 Last Admin: 04/25/18 07:40 Dose: 3 ml Alprazolam (Xanax) 0.25 mg PO DAILY PRN PRN Reason: Anxiety Stop: 05/01/18 17:31 Last Admin: 04/25/18 09:59 Dose: 0.25 mg Enoxaparin Sodium (Lovenox) 40 mg SC DAILY [facility] Last Admin: 04/25/18 09:58 Dose: 40 mg Fluticasone/Vilanterol (Breo Ellipta 100-25 Mcg Inh) 1 puff INH RQD [facility] Last Admin: 04/25/18 07:40 Dose: Not Given Guaifenesin (Mucinex La) 600 mg PO BID [facility] Last Admin: 04/25/18 09:59 Dose: 600 mg Potassium Chloride/Dextrose (Potassium Chl 20 Meq In D5w) 1,000 mls @ 125 mls/hr IV .Q8H [facility] Last Admin: 04/25/18 10:30 Dose: 125 mls/hr Methylprednisolone (Solu-Medrol) 40 mg IVP Q8H [facility] Last Admin: 04/25/18 09:59 Dose: 40 mg Nicotine (Nicoderm Cq) 1 patch TD DAILY [facility] Last Admin: 04/25/18 09:59 Dose: 1 patch Ondansetron HCl (Zofran Inj) 4 mg IVP Q8 PRN PRN Reason: Nausea/Vomiting Last Admin: 04/24/18 17:30 Dose: 4 mg Ondansetron HCl (Zofran Inj) 4 mg IVP ONCE PRN PRN Reason: Nausea/Vomiting Last Admin: 04/25/18 10:10 Dose: 4 mg Pantoprazole Sodium (Protonix Inj) 40 mg IVP Q12H [facility] Last Admin: 04/25/18 12:59 Dose: 40 mg Quetiapine Fumarate (Seroquel) 200 mg PO HS [facility] Last Admin: 04/24/18 22:04 Dose: 200 mg Sertraline HCl (Zoloft) 100 mg PO DAILY [facility] Last Admin: 04/25/18 09:59 Dose: 100 mg - Labs Labs: 04/25/18 08:26 04/25/18 08:26
--- NOTE | 2018-04-25 16:35 | CP.PCM.DIS ---
Provider - Provider Date of Admission: 04/23/18 22:15 Attending physician: Jeffery Jensen MD Consults: 04/24/18 18:23 Pulmonology Consult Routine Comment: Consulting Provider: Hai Martinez Consulting Physician: Hai Martinez Reason for Consult: Hx of COPD, shortness of breath Time Spent in preparation of Discharge (in minutes): 32 Hospital Course - Lab Results Lab Results: Most Recent Lab Values WBC 6.2 K/uL (4.8-10.8) 04/25/18 08:26 RBC 3.86 Mil/uL (3.80-5.20) 04/25/18 08:26 Hgb 12.3 g/dL (11.0-16.0) 04/25/18 08:26 Hct 36.3 % (34.0-47.0) 04/25/18 08:26 MCV 94.1 fL (81.0-99.0) 04/25/18 08:26 MCH 31.9 pg (27.0-31.0) H 04/25/18 08:26 MCHC 33.9 g/dL (33.0-37.0) 04/25/18 08:26 RDW 13.7 % (11.5-14.5) 04/25/18 08:26 Plt Count 319 K/uL (130-400) 04/25/18 08:26 MPV 7.5 fL (7.2-11.7) 04/25/18 08:26 Neut % (Auto) 78.2 % (50.0-75.0) H 04/25/18 08:26 Lymph % (Auto) 14.5 % (20.0-40.0) L 04/25/18 08:26 [place] % (Auto) 5.9 % (0.0-10.0) 04/25/18 08:26 Eos % (Auto) 0.0 % (0.0-4.0) 04/25/18 08:26 Baso % (Auto) 1.4 % (0.0-2.0) 04/25/18 08:26 Neut # (Auto) 4.9 K/uL (1.8-7.0) 04/25/18 08:26 Lymph # (Auto) 0.9 K/uL (1.0-4.3) L 04/25/18 08:26 [place] # (Auto) 0.4 K/uL (0.0-0.8) 04/25/18 08:26 Eos # (Auto) 0.0 K/uL (0.0-0.7) 04/25/18 08:26 Baso # (Auto) 0.1 K/uL (0.0-0.2) 04/25/18 08:26 Neutrophils % (Manual) 90 % (50-75) H 04/23/18 18:04 Lymphocytes % (Manual) 5 % (20-40) L 04/23/18 18:04 Reactive Lymphs % 1 % (0-0) H 04/23/18 18:04 Monocytes % (Manual) 4 % (0-10) 04/23/18 18:04 Platelet Estimate Normal (NORMAL) 04/23/18 18:04 RBC Morphology Normal 04/23/18 18:04 Sodium 137 mmol/L (132-148) 04/25/18 08:26 Potassium 4.5 mmol/L (3.6-5.2) 04/25/18 08:26 Chloride 106 mmol/L (98-107) 04/25/18 08:26 Carbon Dioxide 23 mmol/L (22-30) 04/25/18 08:26 Anion Gap 13 (10-20) 04/25/18 08:26 BUN 8 mg/dL (7-17) 04/25/18 08:26 Creatinine 0.6 mg/dL (0.7-1.2) L 04/25/18 08:26 Est GFR ( Amer) > 60 04/25/18 08:26 Est GFR (Non-Af Amer) > 60 04/25/18 08:26 Random Glucose 156 mg/dL (65-105) H D 04/25/18 08:26 Calcium 9.5 mg/dl (8.6-10.4) 04/25/18 08:26 Phosphorus 3.1 mg/dL (2.5-4.5) 04/24/18 07:41 Magnesium 1.8 mg/dL (1.6-2.3) 04/24/18 07:41 Total Bilirubin 0.3 mg/dL (0.2-1.3) 04/25/18 08:26 AST 20 U/L (14-36) 04/25/18 08:26 ALT 17 U/L (9-52) 04/25/18 08:26 Alkaline Phosphatase 52 U/L (38-126) 04/25/18 08:26 Troponin I < 0.0120 ng/mL (0.00-0.120) 04/23/18 18:04 NT-Pro-B Natriuret Pep 787 pg/mL (0-900) 04/23/18 18:04 Total Protein 7.1 g/dL (6.3-8.3) 04/25/18 08:26 Albumin 4.3 g/dL (3.5-5.0) 04/25/18 08:26 Globulin 2.8 gm/dL (2.2-3.9) 04/25/18 08:26 Albumin/Globulin Ratio 1.5 (1.0-2.1) 04/25/18 08:26 Lipase 27 U/L (23-300) 04/23/18 18:04 Vitamin B12 634 pg/mL (239-931) 04/25/18 08:26 Folate 13.5 ng/mL 04/25/18 08:26 Urine Color Straw (YELLOW) 04/23/18 23:52 Urine Clarity Clear (Clear) 04/23/18 23:52 Urine pH 6.0 (5.0-8.0) 04/23/18 23:52 Ur Specific [place] 1.041 (1.003-1.030) H 04/23/18 23:52 Urine Protein Negative mg/dL (NEGATIVE) 04/23/18 23:52 Urine Glucose (UA) Normal mg/dL (Normal) 04/23/18 23:52 Urine Ketones Trace mg/dL (NEGATIVE) 04/23/18 23:52 Urine Blood Negative (NEGATIVE) 04/23/18 23:52 Urine Nitrate Negative (NEGATIVE) 04/23/18 23:52 Urine Bilirubin Negative (NEGATIVE) 04/23/18 23:52 Urine Urobilinogen Normal mg/dL (0.2-1.0) 04/23/18 23:52 Ur Leukocyte Esterase Neg Parveen/uL (Negative) 04/23/18 23:52 Urine WBC (Auto) < 1 /hpf (0-5) 04/23/18 23:52 Urine RBC (Auto) 3 /hpf (0-3) 04/23/18 23:52 Ur Squamous Epith Cells < 1 /hpf (0-5) 04/23/18 23:52 Influenza Typ A,B (EIA) Negative for flu a/b (NEGATIVE) 04/24/18 19:39 - Hospital Course Hospital Course: History and Physical : Patient is a 58 year old female with past medical history of COPD, depression and arthritis that came to the ED today for multiple episodes of vomiting and epigastric pain that started two days ago. Patient states has vomited 30-40 times in the past two days, mostly water and food content with yellow liquid, and small spots of blood noticed today. Patient says that anything she eats or drinks, she vomits. Patient has tried drinking gatorade, but has not helped. Patient reports 4 episodes of soft, brown diarrhea today. Patient denies drinking alcohol since new years roselyn. Denies eating anything unusual in the past days. Patient denies any sick contacts or recent sickness. Admits to weight loss of 10 pounds in the las month. Admits to subjective fever and chills, denies headache, chest pain, shortness of breath, blood in urine or stool, urinary symptoms like burning, pain at urination, or leg swelling or pain. Hospital course: Patient was admitted for intractable vomiting and diarrhea. Diet was advances as tolerated. Patient was wheezing on exam, started her on IV solumedrol for possible COPD exacerbation. On day of discharge, She was able to have juice and water earlier today without any issues of nausea/vomiting however the contrast for the CT Abdomen/Pelvis did make her nauseous and she vomited it up after the study was performed. Currently there is NO longer any nausea, vomiting, or abdominal pain and states that she feels a lot better than when she came in. She is also not as nervous/anxious as when she first came in. She states that the Gabapentin helped her with her restless leg syndrome when it was given together with the Seroquel last night. There are no other complaints upon FULL ROS. See below assessments for further details on hospital course. Please refer to EMR for any additional details. Assessments: 1). N/V Likely Secondary to SSRI Withdrawl (she stopped taking her Zoloft completely 5 days ago as she ran out) 2). Nicotine Addiction 3). Weight Loss (10 pounds in the last month: needs outpatient Mammogram, Pap Smear and states she had normal Colonoscopy 1 year ago) 4). COPD exacerbation (not on any maintenance medication at home and only uses albuterol inhaler as needed and she continues to smoke 3 to 4 cigarettes a day) 5). Hx Depression (NO suicide ideation or thoughts of hurting anyone else) 6). Hx Recent Falls (could be secondary to SSRI Withdrawl as can cause unsteadiness on legs) CT Head did not show any acute process Chest X Ray did not show any acute process CT Abdomen/Pelvis showed mild dilatation of the proximal small bowel loops with prominence folds which may represent nonspecific acute infectious/inflammatory enteritis, NO obstructions Patient is tolerating clear liquids, repeat CT Abdomen/Pelvis with PO contrast did not show any obstruction or mass, respiratory exam is improved. She is stable for further management as an outpatient. Discharge Medications: Albuterol 90 mcg/actuation, 2 PO Inhalation every 6 hours only as needed for severe shortness of breath, #1 Breo Ellipta 100/25 mcg, 1 PO Inhalation 1x/day (8 AM), #1 Gabapentin 100 mg, 1 tablet by mouth at bedtime (10 PM), #30 Omeprazole 40 mg, 1 tablet by mouth 1x/day (8 AM), #30 Seroquel 200 mg, 1 tablet by mouth (10 PM), #30 Sertraline 100 mg, 1 tablet by mouth (8 AM), #30 Alprazolam 0.5 mg, 1 tablet by mouth every 12 hours ONLY as needed for Anxiety, #15 Prednisone 10 mg, 5 tablets by mouth at once at 8 AM on 04/26/18, 4 tablets by mouth at once at 8 AM on 04/27/18, 3 tablets by mouth at once at 8 AM on 04/28/18, 2 tablets by mouth at once on 04/29/18, and 1 tablet by mouth at once at 8 AM on 04/30/18, Dispense #15 Discharge Exam - Head Exam Head Exam: ATRAUMATIC, NORMAL INSPECTION, NORMOCEPHALIC - Eye Exam Eye Exam: EOMI, Normal appearance Pupil Exam: NORMAL ACCOMODATION - ENT Exam ENT Exam: Mucous Membranes Moist - Respiratory Exam Respiratory Exam: Wheezes (Faint expiratory wheezing noted in the bilateral basilar area), NORMAL BREATHING PATTERN, UNREMARKABLE. absent: Rales, Rhonchi - Cardiovascular Exam Cardiovascular Exam: REGULAR RHYTHM, +S1, +S2 - GI/Abdominal Exam GI & Abdominal Exam: Normal Bowel Sounds, Soft. absent: Guarding, Rebound, Rigid, Tenderness - Extremities Exam Extremities exam: full ROM, pedal pulses present - Neurological Exam Neurological exam: Alert, Normal Gait, Oriented x3 - Psychiatric Exam Psychiatric exam: Normal Affect, Normal Mood - Skin Skin Exam: Dry, Normal Color, Warm Discharge Plan - Discharge Medications Prescriptions: Albuterol HFA [Ventolin HFA 90 mcg/actuation (8 g)] 2 puff IH [id number] PRN #1 inhaler PRN Reason: severe shortness of breath Fluticasone/Vilanterol 100/25 [Breo Ellipta 100-25 MCG INH] 1 puff INH RQD #1 inhaler Gabapentin [Neurontin] 100 mg PO HS #30 cap Pantoprazole Sodium [Protonix] 40 mg PO DAILY #30 ect QUEtiapine [SEROquel] 200 mg PO HS #30 tab Sertraline [Zoloft] 100 mg PO DAILY #30 tab - Follow Up Plan Condition: FAIR Disposition: HOME/ ROUTINE Instructions: Acute Abdominal Pain (DC), Acute Abdominal Pain (GEN) Additional Instructions: 1). Please schedule appointment with your primary care physician Dr. Arnold to occur later this week for further management of your health care. 2). Through Dr. Arnold you will need a referral for Manager Cardiovascular for BRASS FINISHER exam, Pap Smear, and Mammogram. 3). Follow up for Colonoscopy as instructed by your Medical Reception. 4). Schedule appointment with the [facility] located at [address] [place] [address] [place] [address] by calling [phone]. Call them tomorrow to schedule the next available appointment so that you can be followed by a Psychiatrist. 5). For the next few days have a bland diet and stay on liquids such as chicken or beef broth, jello, mixture of gatorade and water and then advance your diet slowly. You may also have some eggs. 6). The following medications will need to be filled at your pharmacy on your way home from the hospital: Albuterol 90 mcg/actuation, 2 PO Inhalation every 6 hours only as needed for severe shortness of breath, #1 Breo Ellipta 100/25 mcg, 1 PO Inhalation 1x/day (8 AM), #1 Gabapentin 100 mg, 1 tablet by mouth at bedtime (10 PM), #30 Omeprazole 40 mg, 1 tablet by mouth 1x/day (8 AM), #30 Seroquel 200 mg, 1 tablet by mouth (10 PM), #30 Sertraline 100 mg, 1 tablet by mouth (8 AM), #30 Alprazolam 0.5 mg, 1 tablet by mouth every 12 hours ONLY as needed for Anxiety, #15 Prednisone 10 mg, 5 tablets by mouth at once at 8 AM on 04/26/18, 4 tablets by mouth at once at 8 AM on 04/27/18, 3 tablets by mouth at once at 8 AM on 04/28/18, 2 tablets by mouth at once on 04/29/18, and 1 tablet by mouth at once at 8 AM on 04/30/18, Dispense #15 7). You must stop smoking. Call for resources in your area to help you stop smoking. If you do NOT then your COPD will get worse not to mention the Acid Reflux. As you already know it can lead to cancer as well. So please call the number for help. 8). Believe in yourself. You are stronger than you give yourself credit for. 9). Please take care and be well.
== END 2018-04-25 17:27 | disposition home or self-care (01) | DRG 747 ==
LOC: C.ER 17:19 → C.9E 22:15 → C.3T 23:59 → C.9E 04-24 → C.6T 04-24 19:18
PROVIDERS: ADMIT Internal Medicine; ATTEND Internal Medicine
DX: F19.239 Other psychoactive substance dependence with withdrawal, unspecified (principal); F20.9 Schizophrenia, unspecified; J44.1 Chronic obstructive pulmonary disease with (acute) exacerbation; E86.0 Dehydration; K52.9 Noninfective gastroenteritis and colitis, unspecified; E03.9 Hypothyroidism, unspecified; F17.210 Nicotine dependence, cigarettes, uncomplicated; F31.9 Bipolar disorder, unspecified; F32.9 Major depressive disorder, single episode, unspecified; R53.1 Weakness; F41.9 Anxiety disorder, unspecified; R63.4 Abnormal weight loss; K21.9 Gastro-esophageal reflux disease without esophagitis; T43.225A Adverse effect of selective serotonin reuptake inhibitors, initial encounter

== ENCOUNTER 2018-05-26 16:02 | Emergency (ER) | payer MEDICAID ==
[2018-05-26 16:03] VITALS: BMI 24.0
[2018-05-26] MEDS ORDERED: Morphine 4 MG/ML VIAL IV ONE (16:18)
[2018-05-26 16:32] VITALS: BP 129/79; PULSE 89; RESP 19; TEMP 98.1; O2SAT 98
--- NOTE | 2018-05-26 17:36 | RAD ---
Date of service: 05/26/2018 PROCEDURE: Radiographs of the chest and bilateral ribs HISTORY: s/p fall COMPARISON: Chest x-ray performed 04/24/18, CT abdomen and pelvis performed 04/25/18 TECHNIQUE: Frontal radiograph of the chest and multiple oblique radiographs of the bilateral ribs were obtained. FINDINGS: RIGHT RIBS: No acute displaced fracture. LEFT RIBS: Chronic appearing left 10th rib fracture deformity. LUNGS: No focal consolidation. Please note that chest x-ray has limited sensitivity for the detection of pulmonary masses. PLEURA: No significant pleural effusion. No definite pneumothorax. CARDIOVASCULAR: Heart size appears within normal limits. Atherosclerotic calcifications of the aorta present. OTHER FINDINGS: Right upper quadrant surgical clips. IMPRESSION: Chronic appearing left 10th rib fracture deformity.
--- NOTE | 2018-05-26 18:13 | C.PDOC ---
History Of Present Illness 58 y/o female brought in by EMS for evaluation of right rib pain s/p fall just prior to arrival. States she was walking upstairs carrying laundry when she missed a step, falling 4 steps down, hitting her right ribs. She rates her pain 9/10. Patient denies any LOC or head trauma. She also denies any chest pain, SOB, coughing, pleuritic pain, numbness, or weakness. <Javier Vogt - Last Filed: 05/26/18 18:46> - HPI History Per: Patient History/Exam Limitations: no limitations Onset/Duration Of Symptoms: Mins Injury Occurred (Timing): Just Before Arrival <Javier Vogt - Last Filed: 05/26/18 18:46> <Philipp Le - Last Filed: 05/27/18 14:15> - HPI Time Seen by Provider: 05/26/18 16:14 Chief Complaint (Nursing): Rib Injury Past Medical History Reviewed: Historical Data, Nursing Documentation, Vital Signs Vital Signs: Last Vital Signs Temp 98.1 F 05/26/18 16:14 Pulse 89 05/26/18 16:14 Resp 19 05/26/18 16:14 BP 129/79 05/26/18 16:14 Pulse Ox 98 05/26/18 16:14 - Medical History PMH: Anxiety, Arthritis, Back Problems (previous pinched nerve), Bipolar Disorder, COPD, Depression, Gall Bladder Disease, Hypothyroidism, Schizophrenia Denies: Diabetes, Hepatitis, Chronic Kidney Disease Surgical History: Cholecystectomy - [facility] Procedures GROUP PSYCHOTHERAPY (07/25/16) INTRODUCTION OF SERUM/TOX/VACCINE INTO MUSCLE, PERC APPROACH (02/12/16) Family History: States: Diabetes - Social History Hx Tobacco Use: Yes Hx Alcohol Use: No Hx Substance Use: No - Immunization History Hx Tetanus Toxoid Vaccination: No Hx Influenza Vaccination: Yes Hx Pneumococcal Vaccination: Yes <Javier Vogt - Last Filed: 05/26/18 18:46> Vital Signs: Last Vital Signs Temp 98.1 F 05/26/18 16:14 Pulse 89 05/26/18 16:14 Resp 19 05/26/18 16:14 BP 129/79 05/26/18 16:14 Pulse Ox 98 05/26/18 20:22 - [facility] Procedures GROUP PSYCHOTHERAPY (07/25/16) INTRODUCTION OF SERUM/TOX/VACCINE INTO MUSCLE, PERC APPROACH (02/12/16) <ReyPhilipp Rebecca - Last Filed: 05/27/18 14:15> Review Of Systems Except As Marked, All Systems Reviewed And Found Negative. Eyes: Negative for: Vision Change Cardiovascular: Negative for: Chest Pain, Palpitations Respiratory: Negative for: Cough, Shortness of Breath Gastrointestinal: Negative for: Abdominal Pain Musculoskeletal: Positive for: Other (Right rib pain) Skin: Negative for: Lesions Neurological: Negative for: Weakness, Numbness, Headache, Dizziness <Verenice Vogtkelijazmine - Last Filed: 05/26/18 18:46> Physical Exam - Physical Exam Appears: Non-toxic, No Acute Distress Skin: Warm, Dry, No Rash, No Ecchymosis Head: Atraumatic, Normacephalic Eye(s): bilateral: Normal Inspection, PERRL, EOMI Oral Mucosa: Moist Neck: Normal ROM Chest: Tenderness (to the right anterior chest along the 10th rib), No Ecchymosis Cardiovascular: Rhythm Regular, No Murmur Respiratory: No Rales, No Rhonchi, No Wheezing, Other (Lungs clear bilaterally) Gastrointestinal/Abdominal: Soft, No Tenderness, No Distention Extremity: Bilateral: Atraumatic, Normal ROM Pulses: Left Dorsalis Pedis: Normal, Right Dorsalis Pedis: Normal Neurological/Psych: Oriented x3, Normal Speech Gait: Steady <Verenice Vogtkelijazmine - Last Filed: 05/26/18 18:46> ED Course And Treatment O2 Sat by Pulse Oximetry: 98 (RA) Pulse Ox Interpretation: Normal - Other Rad R Ribs/Chest XR X-Ray: Read By Radiologist Interpretation: Accession No. : [id number]. Patient Name / ID : XAVIER Pope / [id number]. Exam Date : 05/26/2018 17:11:04 ( Approved ). Study Comment : Sex / Age : F / 58Y. Creator : Octavia Salmeron MD. Dictator : Octavia Salmeron MD. Auto Service Advisor : Golf Range Attendant : cOtavia Salmeron MD. Approver2 : Report Date : 05/26/2018 17:32:38. My Comment : . Date of service: 05/26/2018. PROCEDURE: Radiographs of the chest and bilateral ribs. HISTORY: s/p fall. COMPARISON: Chest x-ray performed 04/24/18, CT abdomen and pelvis performed 04/25/18. TECHNIQUE: Frontal radiograph of the chest and multiple oblique radiographs of the bilateral ribs were obtained. FINDINGS: RIGHT RIBS: No acute displaced fracture. LEFT RIBS: Chronic appearing left 10th rib fracture deformity. LUNGS: No focal consolidation. Please note that chest x-ray has limited sensitivity for the detection of pulmonary masses. PLEURA: No significant pleural effusion. No definite pneumothorax. CARDIOVASCULAR: Heart size appears within normal limits. Atherosclerotic calcifications of the aorta present. OTHER FINDINGS: Right upper quadrant surgical clips. IMPRESSION: Chronic appearing left 10th rib fracture deformity. <Javier Vogt - Last Filed: 05/26/18 18:46> Against Medical Advice - AMA Patient Left Against Medical Advice: The patient declines admission to the hospital and wishes to leave the Emergency Department. This action is against my medical advice. This decision was made with informed refusal. The patient was told that admission to the hospital is necessary. Explanation of the reasons why were discussed. The risks of leaving were explained to the patient and include, but are not limited to, worsening of known or currently unknown conditions, permanent disability and from undiagnosed or untreated conditions. The patient has the capacity to make this informed decision and understands my explanation of the current medical problem and risks of leaving. The patient voluntarily accepts these risks and signed an AMA form documenting our conversation. The patient was given the opportunity to ask questions and reconsider. The patient was encouraged to return to the Emergency Department at any time for further care. <Philipp Le - Last Filed: 05/27/18 14:15> Medical Decision Making Medical Decision Making: Impression: Right rib pain s/p fall Initial Plan: - 2 mg IM Morphine - Bilateral Ribs/Chest x-ray CXR shows chronic left rib fracture, no right-sided fracture Results discussed with patient. Patient discharged with Naproxen for mild to moderate pain; Tramadol for moderate to serve pain. She was advised to follow up with PCP She verbalized understanding. <Javier Vogt - Last Filed: 05/26/18 18:46> Disposition Counseled Patient/Family Regarding: Studies Performed, Diagnosis, Need For Followup, Rx Given, Smoking Cessation - Disposition Disposition Time: 18:47 <Javier Vogt - Last Filed: 05/26/18 18:46> <ReyPhilipp Rebecca - Last Filed: 05/27/18 14:15> - Disposition Referrals: [facility] [Outside] Disposition: HOME/ ROUTINE Condition: STABLE Additional Instructions: NEERAJ PARK, thank you for letting us take care of you today. Your provider was Balta Bernal MD/Javier Vogt PA-C and you were treated for RIB PAIN. The emergency medical care you received today was directed at your acute symptoms. If you were prescribed any medication, please fill it and take as directed. It may take several days for your symptoms to resolve. Return to the Emergency Department if your symptoms worsen, do not improve, or if you have any other problems. Please contact your doctor or call one of the physicians/clinics you have been referred to that are listed on the Patient Visit Information form that is included in your discharge packet. Bring any paperwork you were given at discharge with you along with any medications you are taking to your follow up visit. Our treatment cannot replace ongoing medical care by a primary care provider outside of the emergency department. Thank you for allowing the [facility] team to be part of your care today. Prescriptions: Naproxen 500 mg PO BID PRN #20 tab PRN Reason: Pain, Moderate (4-7) traMADol [Ultram] 50 mg PO TID PRN #15 tab PRN Reason: Pain, Severe (8-10) Instructions: Rib Fracture (DC), Bruised Rib (DC) Forms: [facility] ([place]) - Clinical Impression Clinical Impression: Rib contusion, Left rib fracture Critical Care Time - PA / DRYWALL PROFESSIONAL / Resident Statement MD/DO has reviewed & agrees with the documentation as recorded. - Scribe Statement The provider has reviewed the documentation as recorded by the Scribzully Mcclain All medical record entries made by the Scribe were at my direction and personally dictated by me. I have reviewed the chart and agree that the record accurately reflects my personal performance of the history, physical exam, medical decision making, and the department course for this patient. I have also personally directed, reviewed, and agree with the discharge instructions and disposition. <Javier Vogt - Last Filed: 05/26/18 18:46> Addendum Addendum: 05/27/18 14:13 Pharmacy called to confirm that patient has been prescribed tramadol and alprazolam. Discussed with Dr. Hernandez. <Philipp Le - Last Filed: 05/27/18 14:15>
== END 2018-05-26 19:40 | disposition home or self-care (01) ==
LOC: C.ER 16:02
DX: S22.32XA Fracture of one rib, left side, initial encounter for closed fracture (principal); W10.9XXA Fall (on) (from) unspecified stairs and steps, initial encounter
CPT/HCPCS: 71111; 96372; 99283; J2270

== ENCOUNTER 2018-06-18 08:06 | Observation (INO) | payer MEDICAID | END 2018-06-21 13:40 | disposition home or self-care (01) | LOC: C.ER 08:06 → C.9E 14:19 → C.3T 15:31 | DX: A09 Infectious gastroenteritis and colitis, unspecified (principal); E87.6 Hypokalemia; R73.09 Other abnormal glucose; F33.2 Major depressive disorder, recurrent severe without psychotic features; F43.10 Post-traumatic stress disorder, unspecified; F41.1 Generalized anxiety disorder; F17.200 Nicotine dependence, unspecified, uncomplicated; F20.9 Schizophrenia, unspecified; J44.9 Chronic obstructive pulmonary disease, unspecified; I10 Essential (primary) hypertension; E03.9 Hypothyroidism, unspecified; F31.9 Bipolar disorder, unspecified; Z79.899 Other long term (current) drug therapy; Z90.49 Acquired absence of other specified parts of digestive tract ==

== ENCOUNTER 2018-09-03 19:59 | Inpatient (IN) | payer MEDICARE, MEDICAID ==
[2018-09-03 19:59] VITALS: BMI 24.0
[2018-09-03 21:15] LABS: BASO # 0.1 K/uL (0.0-0.2); BASO % 0.7 % (0.0-2.0); EOS % 0.1 % (0.0-4.0); HEMOGLOBIN 14.2 g/dL (11.0-16.0); LYMPH # 1.9 K/uL (1.0-4.3); LYMPH % 11.2 % (20.0-40.0); MEAN CELL VOLUME 93.9 fL (81.0-99.0); MEAN CORPUSCULAR HEMOGLOBIN 32.3 pg (27.0-31.0); MEAN CORPUSCULAR HGB CONC 34.4 g/dL (33.0-37.0); MEAN PLATELET VOLUME 7.7 fL (7.2-11.7); MONO # 0.9 K/uL (0.0-0.8); MONO % 5.4 % (0.0-10.0); NEUT # 13.7 K/uL (1.8-7.0); NEUT % 82.6 % (50.0-75.0); RBC 4.38 Mil/uL (3.80-5.20); RED CELL DISTRIBUTION WIDTH 14.3 % (11.5-14.5); WHITE BLOOD COUNT 16.5 K/uL (4.8-10.8)
[2018-09-03] MEDS ORDERED: Sodium Chloride 0.9% 1,000 ML IV ONE ×2 (21:31→21:58)
[2018-09-03 21:34] LABS: CALCIUM 11.2 mg/dl (8.6-10.4)
[2018-09-03 21:35] LABS: ALB/GLOB RATIO 1.2 (1.0-2.1); ALBUMIN 5.4 g/dL (3.5-5.0)
--- NOTE | 2018-09-03 21:42 | C.PDOC ---
History Of Present Illness 58 year old female presents with intractable vomiting for the past 2-3 days. Patient has Hx of intractable vomiting, anxiety, psych illness, reports good complaint with her zoloft and seroquel. Also complains of vague periumbilical pain. No fever. Time Seen by Provider: 09/03/18 21:18 Chief Complaint (Nursing): Abdominal Pain History Per: Patient History/Exam Limitations: no limitations Onset/Duration Of Symptoms: Days (2-3) Location Of Pain/Discomfort: Periumbilical Quality Of Discomfort: Unable To Describe Associated Symptoms: Nausea, Vomiting Exacerbating Factors: None Alleviating Factors: None Recent travel outside of the [place]: No Past Medical History Reviewed: Historical Data, Nursing Documentation, Vital Signs Vital Signs: Last Vital Signs Temp 98.8 F 09/03/18 20:11 Pulse 76 09/03/18 20:11 Resp 16 09/03/18 20:11 BP 159/91 H 09/03/18 20:11 Pulse Ox 97 09/03/18 20:11 Primary Care Provider: Non [facility] Provider, - Medical History PMH: Anxiety, Arthritis, Back Problems (previous pinched nerve), Bipolar Disorder, COPD, Depression, Gall Bladder Disease, Hypothyroidism, Schizophrenia Denies: Diabetes, Hepatitis, Chronic Kidney Disease Surgical History: Cholecystectomy - [facility] Procedures GROUP PSYCHOTHERAPY (07/25/16) INTRODUCTION OF SERUM/TOX/VACCINE INTO MUSCLE, PERC APPROACH (02/12/16) Family History: States: Diabetes - Social History Hx Tobacco Use: Yes Hx Alcohol Use: No Hx Substance Use: No - Immunization History Hx Tetanus Toxoid Vaccination: No Hx Influenza Vaccination: Yes Hx Pneumococcal Vaccination: Yes Review Of Systems Constitutional: Negative for: Fever, Chills Cardiovascular: Negative for: Chest Pain, Palpitations Respiratory: Negative for: Cough, Shortness of Breath Gastrointestinal: Positive for: Nausea, Vomiting, Abdominal Pain Neurological: Negative for: Weakness, Numbness Physical Exam - Physical Exam Appears: Other (Chronically mentally ill, disheveled, hyperkinetic) Skin: Normal Color, Warm Head: Atraumatic, Normacephalic Eye(s): bilateral: Normal Inspection Oral Mucosa: Moist Neck: Normal, Supple Chest: Symmetrical, No Tenderness Cardiovascular: Rhythm Regular Respiratory: Normal Breath Sounds, No Rales, No Rhonchi, No Wheezing Gastrointestinal/Abdominal: Soft, No Tenderness Neurological/Psych: Oriented x3, Normal Speech ED Course And Treatment - Laboratory Results Result Diagrams: 09/03/18 21:05 09/03/18 21:05 Lab Results: Total Bilirubin 1.1 mg/dL (0.2-1.3) 09/03/18 21:05 AST 41 U/L (14-36) H D 09/03/18 21:05 ALT 14 U/L (9-52) 09/03/18 21:05 Alkaline Phosphatase 68 U/L (38-126) 09/03/18 21:05 Total Protein 10.0 g/dL (6.3-8.3) H 09/03/18 21:05 Albumin 5.4 g/dL (3.5-5.0) H D 09/03/18 21:05 Globulin 4.6 gm/dL (2.2-3.9) H 09/03/18 21:05 Albumin/Globulin Ratio 1.2 (1.0-2.1) 09/03/18 21:05 Lipase 36 U/L (23-300) 09/03/18 21:05 Lab Interpretation: Abnormal O2 Sat by Pulse Oximetry: 97 (Room air) Pulse Ox Interpretation: Normal - Radiology CXR: Interpreted by Me CXR Interpretation: Yes: No Acute Disease - Other Rad abd x 2 X-Ray: Interpreted by Me (scant stool) Reevaluation Time: 23:13 Reassessment Condition: Improved - Physician Consult Information Outcome Of Conversation: [id number]: d/w Dr. Hwang, PMD, ok to Med/Surg Obs Medical Decision Making Medical Decision Making: persistent n/v, ? psych related gastroenteritis on CT improved with ED tx Disposition Doctor Will See Patient In The: Hospital Counseled Patient/Family Regarding: Studies Performed, Diagnosis - Disposition Disposition: HOSPITALIZED Disposition Time: 23:14 Condition: GOOD Forms: [facility] ([place]) - Clinical Impression Clinical Impression: Gastroenteritis, Anxiety - Scribe Statement The provider has reviewed the documentation as recorded by the Scribzully Aguila All medical record entries made by the Scribe were at my direction and personally dictated by me. I have reviewed the chart and agree that the record accurately reflects my personal performance of the history, physical exam, medical decision making, and the department course for this patient. I have also personally directed, reviewed, and agree with the discharge instructions and disposition.
[2018-09-03] MEDS ORDERED: Sodium Chloride 0.9% 1,000 ML ONE (21:49)
[2018-09-04] MEDS ORDERED: Sodium Chloride 0.9% 1,000 ML IV SCH (08:30)
[2018-09-04] MEDS: Dextrose 5%/0.45% NS 1,000 ML IV SCH ×2 (09:00→09:11)
[2018-09-04 11:07] LABS: BASO # 0.2 K/uL (0.0-0.2); BASO % 1.1 % (0.0-2.0); EOS % 0.2 % (0.0-4.0); HEMOGLOBIN 12.7 g/dL (11.0-16.0); LYMPH # 2.4 K/uL (1.0-4.3); LYMPH % 17.2 % (20.0-40.0); MEAN CELL VOLUME 93.4 fL (81.0-99.0); MEAN CORPUSCULAR HEMOGLOBIN 32.7 pg (27.0-31.0); MEAN PLATELET VOLUME 7.7 fL (7.2-11.7); MONO # 0.9 K/uL (0.0-0.8); MONO % 6.6 % (0.0-10.0); NEUT # 10.5 K/uL (1.8-7.0); NEUT % 74.9 % (50.0-75.0); RBC 3.88 Mil/uL (3.80-5.20)
[2018-09-04 11:18] LABS: CALCIUM 9.9 mg/dl (8.6-10.4)
--- NOTE | 2018-09-04 11:41 | CT ---
Date of service: 09/03/2018 PROCEDURE: CT Abdomen and Pelvis without intravenous contrast HISTORY: persistent vom, ? colitis/obstruction COMPARISON: Comparison is made with 06/18/2018 TECHNIQUE: Axial and reformatted coronal and sagittal CT images of the abdomen and pelvis were obtained without IV or oral contrast administration.. Contrast dose: 0 Radiation dose: Total exam DLP = 381.89 mGy-cm. This CT exam was performed using one or more of the following dose reduction techniques: Automated exposure control, adjustment of the mA and/or kV according to patient size, and/or use of iterative reconstruction technique. FINDINGS: LOWER THORAX: No evidence of acute pathology or pleural effusion. LIVER: Mild hepatomegaly noted. GALLBLADDER AND BILE DUCTS: Status post cholecystectomy. PANCREAS: Unremarkable. No gross lesion or ductal dilatation. SPLEEN: Unremarkable. ADRENALS: Unremarkable. No mass. KIDNEYS AND URETERS: Unremarkable. No hydronephrosis. No solid mass. VASCULATURE: Unremarkable. No aortic aneurysm. Small foci of atherosclerotic calcification noted. BOWEL: There is diffuse gastric and small bowel wall thickening suspicious for gastroenteritis. No evidence of high-grade bowel obstruction. No definite CT evidence of colitis. APPENDIX: Unremarkable. Normal appendix. PERITONEUM: Unremarkable. No free fluid. No free air. LYMPH NODES: Unremarkable. No enlarged lymph nodes. BLADDER: Unremarkable. REPRODUCTIVE: Unremarkable. BONES: No acute fracture. Grade 1 anterior spondylolisthesis of L4 relative to L5 is noted. OTHER FINDINGS: None. IMPRESSION: Findings suggestive of gastroenteritis. No evidence of nephrolithiasis or hydronephrosis. Preliminary report was submitted by [facility] Radiology contains concordant findings.
[2018-09-04] MEDS: metroNIDAZOLE IV 500 mg/100 ml 500 MG/100 ML BAG IVPB SCH ×2 (11:45→20:00)
[2018-09-04 12:15] LABS: HCG,QUALITATIVE URINE NEGATIVE (NEGATIVE); SQUAMOUS EPITHIAL 9 /hpf (0-5); URINE AMORPHOUS SEDIMENT RARE /ul (<OCC); URINE BILIRUBIN NEGATIVE (NEGATIVE); URINE BLOOD NEGATIVE (NEGATIVE); URINE CLARITY Turbid (Clear); URINE COLOR Yellow (YELLOW); URINE GLUCOSE (UA) NORMAL (Normal); URINE LEUKOCYTE ESTERASE NEG Leu/uL (Negative); URINE PROTEIN 1+ mg/dL (NEGATIVE)
[2018-09-04 12:31] LABS: BARBITURATES, UR NEGATIVE (NEGATIVE); BENZODIAZEPINES, UR NEGATIVE (NEGATIVE); OPIATES, UR NEGATIVE (NEGATIVE); PHENCYCLIDINE, UR NEGATIVE (NEGATIVE)
[2018-09-04 14:36] LABS: INR 1.1; PROTHROMBIN TIME 12.3 SECONDS (9.7-12.2)
--- NOTE | 2018-09-04 15:03 | PN ---
DATE: 09/04/2018 LOCATION: 352, bed B. SUBJECTIVE: This is a 58-year-old female, seen and examined in rounds for GI consultation initially on 09/03/2018, as requested by Dr. Weaver, reexamined again today with persistent complaint of nausea, dyspepsia, dysphagia, even liquid material but no reported active bleeding. The entire chart is reviewed including but not limited to most recent lab and radiology study results, current and the previous medication list, current and the previous medical events. Case discussed today at length with Dr. Weaver as the patient was examined in his presence. The patient also reported recent excessive body weight loss for the last two to three months due to her condition. Today's lab results still pending but the patient still have leukocytosis of 16.5 with CO2 content of 20, BUN 31, creatinine 2.3 with increased calcium of 11.2, glucose 137, increased total protein with normal lipase level. It has to be mentioned that the patient was extremely emotional during my physical examination today. PHYSICAL EXAMINATION: GENERAL: An 58-year-old female. VITAL SIGNS: Afebrile with pulse of 94, respiratory rate 20 to 22, blood pressure 124/80. HEENT: Showed pale, dry oral mucous membrane. Nonicteric sclerae. LUNGS: Few scattered crepitation. Decreased air entry at bases. HEART: Positive S1 and S2. ABDOMEN: Soft with mild generalized tenderness. No mass or organomegaly. No rebound tenderness or guarding but midepigastric tenderness. EXTREMITIES: With evidence of muscle wasting syndrome. No clubbing, cyanosis or edema. NEUROLOGIC: No reported new neurological deficits, sensory or motor. IMPRESSION: 1. Dysphagia with persistent midepigastric pain and nausea with vomiting. The possibility of esophageal lesion to be ruled in or out. 2. Re-exacerbation of peptic ulcer disease. 3. Known history of bipolar disorder, hypothyroidism, schizophrenia as well as anxiety syndrome. SUGGESTIONS: 1. Agree with your plan. 2. The patient for upper endoscopy and Reglan IV as well as Carafate p.o. 3. Awaiting CAT scan reports. Zana Charles MD [facility] # [id number]
--- NOTE | 2018-09-04 19:07 | RAD ---
Date of service: 09/03/2018 PROCEDURE: Radiographs of the chest and abdomen (obstructive series) HISTORY: abd pain COMPARISON: No prior. TECHNIQUE: AP radiograph of the chest, with upright and supine radiographs of the abdomen. 3 views obtained. FINDINGS: CHEST: Lungs: Clear. Cardiovascular: Normal size heart. No pulmonary vascular congestion. No aortic atherosclerotic calcification present Pleura: No pleural fluid. No pneumothorax. Other findings: None. ABDOMEN AND PELVIS: Bowel: Unremarkable bowel gas pattern. No evidence of mechanical obstruction. Free air: None. Bones: Unremarkable. Other findings: None. IMPRESSION: No evidence of bowel obstruction. No evidence of acute pulmonary disease. No evidence of subdiaphragmatic free air in this study.
--- NOTE | 2018-09-04 19:51 | PCM.PSYCH ---
Initial Psychiatric Evaluation - Initial Psychiatric Evaluation Type of Admission: Voluntary Legal Status: Capacity Chief Complaint (in patient's own words): "I feel sick" History of Present Illness and Precipitating Events: Patient is a 58 year old white female, a consult for anxiety and depression. Patient reports that she has a history of depression and anxiety, and she follow-up with Dr. Gibson outpatient. Patient reports a history of Bipolar depression and she is currently taking Seroquel 200mg daily, Zoloft 100mg daily and Xanax 0.5mg BID. Patient reports 2 previous psychiatric hospitalizations at [facility] and in [place], but she cannot recall the name of the hospital. Patient reports depressive mood and anxiety on and off Patient reports that she used to drink alcohol, but not anymore, She however reports using marijuana once in a whole. She also reports smoking cigarettes occasionally, but denies any other illicit drug use. Patient currently lives with her boyfriend, and is on disability, she has 2 children whom she reports are not very supportive. She denies any SI/HI, denies delusions, paranoid or hallucinations at this time of evaluation. PsychHx: MDD, Severe, ALEX, Cannabis use disorder, Alcohol use disorder in remission, no suicide attempts PMHx: COPD, Gastroenteritis FamHx: Depression, Anxiety, brother committed suicide. Current Medications: Active Medications Generic Name Dose Route Start Last Admin Trade Name Freq PRN Reason Stop Dose Admin Alprazolam 0.5 mg 09/04/18 13:06 Xanax PO BID PRN Anxiety Amlodipine Besylate 2.5 mg 09/04/18 12:02 Norvasc PO DAILY VINCE Gabapentin 100 mg 09/04/18 14:00 09/04/18 17:31 Neurontin PO 100 mg TID VINCE Administration Heparin Sodium (Porcine) 5,000 units 09/04/18 10:00 09/04/18 09:36 Heparin SC 5,000 units Q12 VINCE Administration Dextrose/Sodium Chloride 1,000 mls @ 100 mls/hr 09/04/18 08:00 09/04/18 09:00 Dextrose 5%/0.45% Ns 1000 Ml IV 100 mls/hr .Q10H VINCE Administration Metronidazole 500 mg in 100 mls @ 100 mls/hr 09/04/18 12:00 09/04/18 11:45 Flagyl IVPB 100 mls/hr Q8H VINCE Administration Protocol Metoclopramide HCl 5 mg 09/04/18 11:15 09/04/18 11:45 Reglan IVP 09/08/18 09:00 5 mg Q6H VINCE Administration Ondansetron HCl 4 mg 09/04/18 07:47 09/04/18 14:49 Zofran Inj IVP 4 mg Q6 PRN Administration Nausea/Vomiting Pantoprazole Sodium 40 mg 09/04/18 10:00 09/04/18 09:36 Protonix Inj IVP 40 mg DAILY VINCE Administration Quetiapine Fumarate 200 mg 09/04/18 22:00 Seroquel PO HS VINCE Sertraline HCl 100 mg 09/04/18 12:15 09/04/18 12:36 Zoloft PO 100 mg DAILY VINCE Administration Sucralfate 1 gm 09/04/18 22:00 Carafate Oral Susp PO ACBHS VINCE Tramadol HCl 50 mg 09/04/18 12:00 09/04/18 14:48 Ultram PO 50 mg TID PRN Administration Pain, severe (8-10) Past Psychiatric History - Past Psychiatric History Previous Treatment History: Inpatient Pertinent Medical Hx (Current Medical&Sleep Prob, Allergies): Allergies Allergy/AdvReac Type Severity Reaction Status Date / Time No Known Allergies Allergy Verified 09/03/18 20:15 traMADol [Ultram] 50 mg PO TID PRN #15 tab 05/26/18 Ciprofloxacin [Cipro] 500 mg PO Q12H #10 tab 06/21/18 Gabapentin [Neurontin] 100 mg PO TID #90 cap 06/21/18 Metronidazole [Flagyl] 500 mg PO TID #15 tablet 06/21/18 QUEtiapine [SEROquel] 200 mg PO HS #30 tab 06/21/18 Sertraline [Zoloft] 100 mg PO DAILY #30 tab 06/21/18 amLODIPine [Norvasc] 2.5 mg PO DAILY #30 tab 06/21/18 ALPRAZolam [Xanax] 1 mg PO DAILY 09/04/18 Review of Systems - Psychiatric Psychiatric: As Per HPI, Abnormal Sleep Pattern, Anxiety, Behavioral Changes, Change in Appetite, Depression Mental Status Examination - Personal Presentation Personal Presentation: Looks stated age - Affect Affect: Constricted, Depressed - Motor Activity Motor Activity: Calm - Reliability in Providing Information Reliability in Providing Information: Fair - Speech Speech: Relevant, Coherent - Mood Mood: Depressed, Anxious - Formal Thought Process Formal Thought Process: No Impairment - Obsessions/Compulsions Obsessions: None Compulsions: None - Cognitive Functions Orientation: Person, Place, Situation, Time Sensorium: Alert Attention/Concentration: Attentive Estimate of Intelligence: Average Judgement: Intact, as evidence by: Insight regarding need for hospitalization - Risk Risk: Diminished functioning - Strength & Assets Inventory Strength & Assets Inventory: Family support DSM 5 DX - DSM 5 DSM 5 Diagnosis: Major Depressive Disorder, Recurrent, Severer without psychotic features Generalized Anxiety Disorder Cannabis Use Disorder - Recommended/Plan of Treatment Treatment Recommendations and Plan of Treatment: Start home medications - Seroquel 200mg at bedtime, Zoloft 100mg, and Xanax 0.5mg BID PRN anxiety As need medications All risks, benefits and alternatives of the meds discussed, and the pt agreed and understood. Attend groups and activities Individual therapy daily Psychoeducation and support daily Encourage compliance with meds and after care Refer to outpatient program Teach healthy lifestyle methods, i.e. diet, exercise, meditation Smoking cessation and patch if needed 32 min
[2018-09-04] MEDS: Sucralfate 1 gm/10 ml Oral Susp UD PO SCH (22:11)
[2018-09-05] MEDS: Dextrose 5%/0.45% NS 1,000 ML IV SCH ×2 (04:13→14:50)
[2018-09-05] MEDS: metroNIDAZOLE IV 500 mg/100 ml 500 MG/100 ML BAG IVPB SCH ×3 (04:14→19:27)
[2018-09-05] MEDS: Sucralfate 1 gm/10 ml Oral Susp UD PO SCH ×2 (07:54→21:45)
--- NOTE | 2018-09-05 12:38 | PN ---
DATE: 09/05/2018 LOCATION 352, bed B. SUBJECTIVE: This is a 58-year-old female, seen and examined in rounds, very emotional, complaining of dyspepsia and dysphagia without reported active GI bleeding but abdominal pain. No reported actual chest pain, palpitation or significant increase of shortness of breath. The entire chart is reviewed including the most recent lab and radiology study results. Most recently, CAT scan was suggestive of gastroenteritis with no evidence of renal stone or hydronephrosis. The most recently done CEA level reported to be elevated 5.4. PHYSICAL EXAMINATION: GENERAL: A 58-year-old female awake, alert, oriented, very emotional. VITAL SIGNS: Afebrile with pulse of 76, respiratory rate 20 to 22, blood pressure of 124/74. HEENT: Showed pale, dry oral mucous membrane. Nonicteric sclerae. LUNGS: Few scattered crepitation. Decreased air entry at bases. HEART: Positive S1 and S2, increased rate. ABDOMEN: Soft with generalized mild tenderness. No mass or organomegaly. No rebound tenderness or guarding. EXTREMITIES: Without significant clubbing, cyanosis or edema. RECTAL: The patient refused. NEUROLOGIC: No reported new neurological deficits, sensory or motor. No reported new focal deficits. IMPRESSION: 1. Dysphagia with persistent dyspepsia and midepigastric pain associated with episode of nausea and vomiting before, to rule out esophageal lesion versus gastric or/and duodenal ulcer. 2. Re-exacerbation of peptic ulcer disease. 3. Known history of hypothyroidism, schizophrenia, severe anxiety syndrome with bipolar disorder. 4. Dehydration with prerenal azotemia. 5. Increased CEA level. The possibility of lower gastrointestinal tract carcinoma to be ruled in or out. SUGGESTIONS: 1. Agree with your plan. 2. The patient is scheduled for upper endoscopy at a.m. to be followed by colonoscopy only as needed. 3. Guaiac all the stools daily x3. 4. Further recommendation to follow. Zana Charles MD
--- NOTE | 2018-09-05 21:40 | PCM.PYCHPN ---
Psychiatric Progress Note - Psychiatric Progress Note Patient seen today, length of contact: 16 Mins Patient Chief Complaint: "I am feeling better today" Problems Identified/Issues Discussed: The pt is seen, chart reviewed, case is discussed with staff. The pt is compliant with medications and reports no side-effects. Symptoms are improving but needs more time to stabilize and to avoid relapse. Pt attends groups and activities. Support given, psycho-education provided. After care discussed. Medication Change: Yes Medical Record Reviewed: Yes Mental Status Examination - Cognitive Function Orientation: Person, Place, Situation, Time Memory: Intact Attention: WNL Concentration: WNL - Mood Mood: Anxious - Affect Affect: Constricted, Depressed - Speech Speech: Appropriate - Formal Thought Process Formal Thought Process: No Impairment - Suicidal Ideation Suicidal Ideation: No - Homicidal Ideation Homicidal Ideation: No Goal/Treatment Plan - Goal/Treatment Plan Need for Continued Stay: Severe depression anxiety, Discharge may exacerbated symptoms Progress Toward Problem(s) and Goals/Treatment Plan: Continue medications Support and psychoeducation daily Attend groups and activities daily Individual therapy After care planning by TYRELL and the team
[2018-09-06] MEDS: metroNIDAZOLE IV 500 mg/100 ml 500 MG/100 ML BAG IVPB SCH ×3 (03:20→19:27)
[2018-09-06] MEDS: Sucralfate 1 gm/10 ml Oral Susp UD PO SCH ×2 (08:00→20:56)
[2018-09-06] MEDS ORDERED: Midazolam 2 MG/2 ML VIAL ONE (09:05)
[2018-09-06] MEDS ORDERED: Propofol 10 mg/ml Inj (20 ML) ONE (09:06)
[2018-09-06] MEDS ORDERED: Peg-Electrolyte Oral Soln 4L (Golytely) PO ONE (10:30)
[2018-09-06] MEDS: Dextrose 5%/0.45% NS 1,000 ML IV SCH ×2 (11:00)
[2018-09-06] MEDS ORDERED: Bisacodyl 5mg EC Tab PO ONE (17:00)
--- NOTE | 2018-09-06 21:09 | PCM.FALL ---
Post Fall Progress Note - Post Fall Fall Date: 09/06/18 Fall Time: 20:55 Description of Fall: Pt agitated from frequent neighbor visitors, fixated on chairs, got up to go to bathroom, on go lightly. Pt tripped over first chair and hit her head on the second chair wooden backrest, then fell down on Left Hip. denies any syncope, recalls events clearly, denies any inciting dizziness/lightheadedness/room spinning. denies any headache, loss in vision, hearing changes, weakness, numbness. - Post Fall Exam Vital Sign: Temp Pulse Resp BP Pulse Ox 98.1 F 68 20 144/77 95 09/06/18 16:40 09/06/18 16:40 09/06/18 16:40 09/06/18 16:40 09/06/18 16:40 Skull Exam: Negative for: Scalp wound, Scalp hematoma, Scalp depression, Ridge in skull Eye Exam: Positive for: Pupils equal, Pupils reactive Ear Exam: Negative for: Discharge, Bleeding Skin Exam: Negative for: Colour, Lacerations, Grazes, Bruising Mouth Exam: Negative for: Tongue bitten, Teeth dislodge Neck Exam: Negative for: Tenderness, Tingling, Weakness Spinal Exam: Negative for: Tenderness, Tingling, Weakness Chest Exam: Negative for: Difficulty breathing, Tenderness in collar bones, Tenderness in ribs Abdomen Exam: Negative for: Tenderness Pelvic Exam: Negative for: Tenderness, Hematuria Arm Exam: Negative for: Deformity, Alteration in range of movement Leg Exam: Positive for: Alteration in range of movement (L hip pain in lateral aspect with Passive ROM) Impression/Plan: CT Head w/o contrast L Hip Xray Orthostatic Vitals Monitor mental status Monitor vitals CK PGY1
[2018-09-07] MEDS: metroNIDAZOLE IV 500 mg/100 ml 500 MG/100 ML BAG IVPB SCH ×3 (03:33→21:28)
[2018-09-07] MEDS: Dextrose 5%/0.45% NS 1,000 ML IV SCH ×2 (06:30→21:29)
--- NOTE | 2018-09-07 07:27 | CON ---
DATE: 09/03/[address] Zana Charles to Dr. Jourdan Weaver. I was called for a GI consultation by the admitting medical team. The patient was seen and fully examined on 09/03/[address] Weaver in his presence. The entire chart is reviewed including, but not limited to most recent lab and radiology study results. Current and previous medication list as well as also available current and previous medical records. We discussed with the staff in the floor at length before and immediately after my GI consultation and physical examination on 09/03/2018. HISTORY OF PRESENT ILLNESS: This is a 58-year-old female, who was admitted to hospital due to severe intractable vomiting for several days with dyspepsia, nausea, and dysphagia. Recent body weight loss of unclear etiology, but no reported active GI bleeding so far, no chest pain or palpitation, significant shortness of breath, chills or fever. PAST MEDICAL HISTORY: Includin. Severe anxiety syndrome. 2. Bipolar disorder. 3. COPD. 4. Chronic lower back pain syndrome. 5. Hypothyroidism. 6. Peptic ulcer disease. 7. Questionable history of schizophrenia. 8. Cholelithiasis, was status post cholecystectomy. FAMILY HISTORY: Unrelated to specific GI disorder. SOCIAL HISTORY: Positive for cigarette smoking, but reported no recent history of alcohol intake. CURRENT MEDICATIONS: Also admission medication lists were reviewed. ALLERGIES TO MEDICATION: UNCLEAR. LABORATORY DATA: Initial blood work at the time of admission showed a normal H and H, but leukocytosis of 16.5 with thrombocytosis of 426 with BUN 31, creatinine 2.3, blood glucose level 137 with total bilirubin 1.1. Otherwise, normal liver function test. The patient has normal lipase and amylase level. PHYSICAL EXAMINATION: GENERAL: A 58-year-old female, appeared to be extremely stressed, very emotional. VITAL SIGNS: Afebrile with pulse of 72, respiratory rate 16 to 20, blood pressure 164/88. HEENT: Showed pale, dry, mucous membrane, nonicteric sclerae. LUNGS: Few scattered crepitations. Decreased air entry at bases. HEART: Positive S1 and S2. ABDOMEN: With mild generalized tenderness. No masses or organomegaly. No rebound tenderness or guarding. EXTREMITIES: Shows evidence of muscle wasting syndrome. RECTAL: The patient refused. NEUROLOGIC: No reported new neurological deficits, sensory or motor. IMPRESSION: 1. Dysphagia with episodes of regurgitation, nausea, vomiting, or dyspepsia. The possibility of esophageal mass lesion versus achalasia was raised versus gastric and/or duodenal ulcer. 2. Excessive body weight loss, rule out upper gastrointestinal malignancy. 3. Renal insufficiency with dehydration secondary to above. 4. Multiple past medical history as mentioned above. SUGGESTION: 1. Agree with your plan. 2. Cancer markers including CEA, CA 19-9, and CA 125. 3. Proton pump inhibitors IV. 4. Flagyl IV due to the leukocytosis. 5. Sectional abdominal and pelvic CAT scan. 6. Endoscopic evaluation of the GI tract when the patient is more stable clinically. 7. Further recommendation to follow and psychiatric evaluation to be ordered. Thank you for letting me to participate in your patient's case management. Zana Charles MD
--- NOTE | 2018-09-07 07:28 | HP ---
HISTORY OF PRESENT ILLNESS: This is a 58-year-old female with history of abdominal pain, weakness, fatigue, tiredness, nausea, vomiting on and off for the past three months. The patient came to ER, advised admission. PHYSICAL EXAMINATION: GENERAL: The patient is awake, alert, oriented. VITAL SIGNS: Temperature 98, pulse 90. HEENT: Within normal limits. NECK: Supple. CHEST: Symmetrical. HEART: Regular. ABDOMEN: Soft. EXTREMITIES: No edema. IMPRESSION AND PLAN: The patient suffers from gastroenteritis. The patient is to get bedrest, supportive care. Jourdan Weaver MD
--- NOTE | 2018-09-07 07:32 | PN ---
DATE: 09/05/2018 The patient complained of nausea and vomiting. Supportive care. IV fluids. GI evaluation. Jourdan Weaver MD
--- NOTE | 2018-09-07 07:59 | CT ---
Date of service: 09/06/2018 PROCEDURE: CT HEAD WITHOUT CONTRAST. HISTORY: s/p fall, left anterior forehead point of impact. Head injury. COMPARISON: 04/24/2018 TECHNIQUE: Axial computed tomography images were obtained through the head/brain without intravenous contrast. Radiation dose: Total exam DLP = 833.04 mGy-cm. This CT exam was performed using one or more of the following dose reduction techniques: Automated exposure control, adjustment of the mA and/or kV according to patient size, and/or use of iterative reconstruction technique. FINDINGS: HEMORRHAGE: No intracranial hemorrhage. BRAIN: No mass effect or edema. Scattered focal lucencies in the subcortical and periventricular white matter suggestive for chronic microvascular ischemic change. Diffuse generalized parenchymal atrophy. VENTRICLES: Unremarkable. No hydrocephalus. CALVARIUM: Unremarkable. PARANASAL SINUSES: Unremarkable as visualized. No significant inflammatory changes. MASTOID AIR CELLS: Unremarkable as visualized. No inflammatory changes. OTHER FINDINGS: None. IMPRESSION: No acute intracranial abnormality. Chronic microvascular ischemic changes. Diffuse generalized parenchymal atrophy. If symptoms persists, consider correlation with MRI. A preliminary report was generated at 10:44 p.m. on 09/06/[address] Zhang Fry from [employer].
[2018-09-07] MEDS: Sucralfate 1 gm/10 ml Oral Susp UD PO SCH ×2 (08:30→21:25)
--- NOTE | 2018-09-07 09:09 | CP.PCM.PN ---
Subjective - Date & Time of Evaluation Date of Evaluation: 09/07/18 Time of Evaluation: 09:08 - Subjective Subjective: PGY2- Progress Note Patient seen and examined at bedside resting comfortably. Patient denies any headache, chest pain, or shortness of breath. 58 year old female with a history of anxiety, panic attacks, and chronic low back pain presents with intractable vomiting for the past three days. Patient reports some periumbilical pain in conjunction with the nausea and vomiting. Patient denies any alleviating or modifying factors. Patient denies any chest pain, palpitations, headaches, dizzziness, syncopal episodes, or any other complaints. PMHx: Depression, Anxiet, Pannic Attack, Suicide Ideation, Chronic Low Back Pain PSHx: Cholecystecomy, Right Bunion Surgery ALL: NKDA Medications at Home: Clonazepam 0.25 mg PO 2x/day, Seroquel 300 mg PO QHS, Diclofenac 100 mg PO 2x/day, Flexeril 5 mg PO QHS PRN Muscl Spasms Back, Cogentin 1mg PO 2x/day Social Hx: Unemployed, (+) Tobacco 1 pack a day for 40+ years, (+) Illicit Drugs which include Marijuana and Cocaine (which she states she used just a few days ago), NO alcohol Family Hx: Brother ( of HIV complications), Brother ( of complications of Brain Aneurysm), Brother (committed suicide), Sister ( roughly 2 years ago of complications of obesity and anniversary of coming up in few days) Objective - Vital Signs/Intake and Output Vital Signs (last 24 hours): Temp Pulse Resp BP Pulse Ox 98 F 74 20 106/68 96 09/07/18 07:46 09/07/18 07:46 09/07/18 07:46 09/07/18 07:46 09/07/18 07:46 Intake and Output: 09/07/18 09/07/18 06:59 18:59 Intake Total 3300 Balance 3300 - Medications Medications: Current Medications Alprazolam (Xanax) 0.5 mg PO BID PRN PRN Reason: Anxiety Last Admin: 09/06/18 20:53 Dose: 0.5 mg Amlodipine Besylate (Norvasc) 2.5 mg PO DAILY [facility] Last Admin: 09/06/18 11:00 Dose: 2.5 mg Gabapentin (Neurontin) 100 mg PO TID [facility] [place] Last Admin: 09/06/18 18:17 Dose: 100 mg Heparin Sodium (Porcine) (Heparin) 5,000 units SC Q12 [facility] [place] Last Admin: 09/06/18 11:00 Dose: 5,000 units Metronidazole (Flagyl) 500 mg in 100 mls @ 100 mls/hr IVPB Q8H [facility] [place]; Protocol Last Admin: 09/07/18 03:33 Dose: 100 mls/hr Metoclopramide HCl (Reglan) 5 mg IVP Q6H [facility] [place] Stop: 09/08/18 09:00 Last Admin: 09/07/18 06:29 Dose: 5 mg Ondansetron HCl (Zofran Inj) 4 mg IVP Q6 PRN PRN Reason: Nausea/Vomiting Last Admin: 09/06/18 18:18 Dose: 4 mg Pantoprazole Sodium (Protonix Inj) 40 mg IVP DAILY [facility] [place] Last Admin: 09/06/18 11:00 Dose: 40 mg Quetiapine Fumarate (Seroquel) 200 mg PO HS [facility] [place] Last Admin: 09/06/18 21:41 Dose: Not Given Sertraline HCl (Zoloft) 100 mg PO DAILY [facility] [place] Last Admin: 09/06/18 11:00 Dose: 100 mg Sucralfate (Carafate Oral Susp) 1 gm PO ACS [facility] [place] Last Admin: 09/07/18 08:30 Dose: Not Given Tramadol HCl (Ultram) 50 mg PO TID PRN PRN Reason: Pain, severe (8-10) Last Admin: 09/06/18 16:16 Dose: 50 mg - Labs Labs: 09/04/18 10:58 09/04/18 10:58 PT 12.3 SECONDS (9.7-12.2) H 09/04/18 14:05 INR 1.1 09/04/18 14:05 APTT 33.0 SECONDS (21-34) 09/04/18 14:05 - Head Exam Head Exam: ATRAUMATIC, NORMAL INSPECTION - Eye Exam Eye Exam: EOMI, Normal appearance Pupil Exam: NORMAL ACCOMODATION, PERRL. absent: Mydriatic - ENT Exam ENT Exam: Mucous Membranes Moist, Normal Exam - Neck Exam Neck Exam: Normal Inspection - Respiratory Exam Respiratory Exam: Clear to Ausculation Bilateral, NORMAL BREATHING PATTERN. absent: Stridor - Cardiovascular Exam Cardiovascular Exam: REGULAR RHYTHM, +S1, +S2. absent: Tachycardia, +S4 - GI/Abdominal Exam GI & Abdominal Exam: Soft, Normal Bowel Sounds. absent: Tenderness, Diminished Bowel Sounds - Extremities Exam Extremities Exam: Normal Capillary Refill, Normal Inspection. absent: Joint Swelling - Back Exam Back Exam: NORMAL INSPECTION - Neurological Exam Neurological Exam: Alert, Awake, CN II-XII Intact, Normal Gait, Oriented x3 - Psychiatric Exam Psychiatric exam: Normal Affect, Normal Mood - Skin Skin Exam: Dry, Intact, Normal Color Assessment and Plan - Assessment and Plan (Free Text) Plan: Abdominal pain/gastroenteritis Abd Pelvis CT: gastroenteritis -GI consulted Dr. Alfaro consulted--> Help appreciated -EGD done: shows esophagitis, hiatal hernia, gastritis -Colonoscopy to be done today: Showed internal and external hemorrhoids, Diverticulosis, moderate colonic spasm and congested mucosa that was biopsed Meds: Flagyl 500mg IVPB Q8 Tramadol 50mg PO TID PRN Protonix 40mg ivp daily Zofran 4mg ivp q6h prn S/p mechanical fall -Head ct:negative -Hip xray:no acute fracture or dislocation. Hx of depression -psych consult. Dr. Wilkins. recs appreciated meds: Zoloft 100mg po daily Gabapentin 100mg po TID Seroquel 200mg po HS Xanax .5mg po bid prn Elevated blood glucose -HGB a1c: 5.6 -hypoglycemia protocol Marijuana abuse UDS: positive for marijuana HTN -Amlodipine 2.5mg po daily GI/DVT ppx Heparin Protonix Dispo: Await path reports from colonoscopy. Plan discussed with Attending Dr. Weaver. Guillermo Bradshaw, PGY2
--- NOTE | 2018-09-07 09:25 | RAD ---
PROCEDURE: Left Hip X-ray Radiographs. HISTORY: s/p fall COMPARISON: None. TECHNIQUE: 2 views obtained. FINDINGS: BONES: No acute fracture identified. Degenerative changes noted of the visualized lower lumbar spine. Enthesophyte formation noted off the anterior superior iliac spines, larger on the left. JOINTS: Bilateral hip joints, sacroiliac joints, and pubic symphysis are unremarkable. SOFT TISSUES: Unremarkable OTHER FINDINGS: None. IMPRESSION: No acute fracture or dislocation identified.
[2018-09-07] MEDS ORDERED: Propofol 10 mg/ml Inj (20 ML) ONE ×2 (10:13→10:26)
[2018-09-07] MEDS ORDERED: Midazolam 2 MG/2 ML VIAL ONE (10:13)
[2018-09-07] MEDS ORDERED: Lidocaine Hydrochloride 5 ML INJ ONE (10:14)
[2018-09-07] MEDS ORDERED: Glucagon Recombinant 1 mg Inj ONE (10:23)
[2018-09-07] MEDS ORDERED: Belladonna-Phenobarbital PO ONE ×2 (10:30→13:30)
[2018-09-07 11:07] VITALS: RESP 20
--- NOTE | 2018-09-07 14:32 | PCM.PYCHPN ---
Psychiatric Progress Note - Psychiatric Progress Note Patient seen today, length of contact: 16 Mins Patient Chief Complaint: "Worried" Problems Identified/Issues Discussed: The pt is seen, chart reviewed, case is discussed with staff. Support and psychoeducation given The pt is improving slowly but needs more time due to severity of symptoms and relapse risk. No SEs from medications, risks discussed. After care discussed - [facility] Medication Change: Yes Medical Record Reviewed: Yes Mental Status Examination - Cognitive Function Orientation: Person, Place, Situation, Time Memory: Intact Attention: WNL Concentration: WNL Association: WNL Fund of Knowledge: WNL - Mood Mood: Anxious - Affect Affect: Constricted, Depressed - Speech Speech: Appropriate - Formal Thought Process Formal Thought Process: No Impairment - Suicidal Ideation Suicidal Ideation: No - Homicidal Ideation Homicidal Ideation: No Goal/Treatment Plan - Goal/Treatment Plan Need for Continued Stay: Severe depression anxiety, Discharge may exacerbated symptoms, Other (MEDICAL) Progress Toward Problem(s) and Goals/Treatment Plan: Continue medications Support and psychoeducation daily Individual therapy referral to [facility] After care planning by TYRELL and the team
[2018-09-08 00:22] VITALS: O2SAT 97
[2018-09-08] MEDS: metroNIDAZOLE IV 500 mg/100 ml 500 MG/100 ML BAG IVPB SCH ×2 (03:34→13:00)
--- NOTE | 2018-09-08 07:18 | CP.PCM.PN ---
Subjective - Date & Time of Evaluation Date of Evaluation: 09/08/18 Time of Evaluation: 07:12 - Subjective Subjective: Progress note for Dr. Weaver Patient was seen and examined at bedside in no acute distress. Patient reports feeling better today. She states she had a familia salad last night and has so far tolerated it. she denies nausea, vomiting, and abdominal pain. She has no additional complaints and denies chest pain, palpitations, dyspnea, leg p ain/swelling, headaches. No acute events overnight. Objective - Vital Signs/Intake and Output Vital Signs (last 24 hours): Temp Pulse Resp BP Pulse Ox 98 F 66 20 100/62 97 09/08/18 00:00 09/08/18 00:00 09/08/18 00:00 09/08/18 00:00 09/08/18 00:00 Intake and Output: 09/08/18 09/08/18 06:59 18:59 Intake Total 2360 Balance 2360 - Medications Medications: Current Medications Alprazolam (Xanax) 0.5 mg PO BID PRN PRN Reason: Anxiety Last Admin: 09/07/18 21:22 Dose: 0.5 mg Amlodipine Besylate (Norvasc) 2.5 mg PO DAILY [facility] Last Admin: 09/07/18 11:15 Dose: 2.5 mg Gabapentin (Neurontin) 100 mg PO TID [facility] Last Admin: 09/07/18 18:14 Dose: 100 mg Heparin Sodium (Porcine) (Heparin) 5,000 units SC Q12 [facility] Last Admin: 09/07/18 21:20 Dose: 5,000 units Metronidazole (Flagyl) 500 mg in 100 mls @ 100 mls/hr IVPB Q8H [facility]; Protocol Last Admin: 09/08/18 03:34 Dose: 100 mls/hr Metoclopramide HCl (Reglan) 5 mg IVP Q6H [facility] Stop: 09/08/18 09:00 Last Admin: 09/08/18 05:26 Dose: 5 mg Ondansetron HCl (Zofran Inj) 4 mg IVP Q6 PRN PRN Reason: Nausea/Vomiting Last Admin: 09/06/18 18:18 Dose: 4 mg Pantoprazole Sodium (Protonix Inj) 40 mg IVP DAILY [facility] Last Admin: 09/07/18 11:15 Dose: 40 mg Quetiapine Fumarate (Seroquel) 200 mg PO HS [facility] Last Admin: 09/07/18 21:20 Dose: 200 mg Sertraline HCl (Zoloft) 100 mg PO DAILY [facility] Last Admin: 09/07/18 11:15 Dose: 100 mg Sucralfate (Carafate Oral Susp) 1 gm PO ACBHS [facility] Last Admin: 09/07/18 21:25 Dose: 1 gm Tramadol HCl (Ultram) 50 mg PO TID PRN PRN Reason: Pain, severe (8-10) Last Admin: 09/07/18 21:21 Dose: 50 mg - Labs Labs: 09/04/18 10:58 09/04/18 10:58 PT 12.3 SECONDS (9.7-12.2) H 09/04/18 14:05 INR 1.1 09/04/18 14:05 APTT 33.0 SECONDS (21-34) 09/04/18 14:05 - Constitutional Appears: No Acute Distress - Head Exam Head Exam: ATRAUMATIC, NORMAL INSPECTION - Eye Exam Eye Exam: EOMI - ENT Exam ENT Exam: Mucous Membranes Moist - Respiratory Exam Respiratory Exam: Decreased Breath Sounds, NORMAL BREATHING PATTERN. absent: Rales, Rhonchi, Wheezes, Respiratory Distress - Cardiovascular Exam Cardiovascular Exam: REGULAR RHYTHM, +S1, +S2 - GI/Abdominal Exam GI & Abdominal Exam: Soft, Tenderness (mild epigastric tenderness), Normal Bowel Sounds. absent: Distended, Firm - Extremities Exam Extremities Exam: Normal Inspection. absent: Pedal Edema, Tenderness - Neurological Exam Neurological Exam: Alert, Awake, Oriented x3 - Psychiatric Exam Psychiatric exam: Normal Affect, Normal Mood - Skin Skin Exam: Dry, Warm Assessment and Plan - Assessment and Plan (Free Text) Plan: 58 year old female with a history of anxiety, panic attacks, and chronic low back pain presents with intractable vomiting for the past three days. Abdominal pain/gastroenteritis - Abd Pelvis CT: gastroenteritis - GI consulted Dr. Alfaro consulted--> Help appreciated - EGD done: shows esophagitis, hiatal hernia, gastritis - s/p Colonoscopy on 09/07: Showed internal and external hemorrhoids, Diverticulo sis, moderate colonic spasm and congested mucosa that was biopsed - Medications: * Flagyl 500mg IVPB Q8 (Started 09/04) * Tramadol 50mg PO TID PRN * Protonix 40mg ivp daily * Zofran 4mg ivp q6h prn S/p mechanical fall - Head CT: negative for acute pathology - Hip xray: no acute fracture or dislocation. Hx of depression - Psych consult. Dr. Wilkins. recs appreciated - Medications: * Zoloft 100mg po daily * Gabapentin 100mg po TID * Seroquel 200mg po HS * Xanax .5mg po bid prn Elevated blood glucose - HGB a1c: 5.6 - Hypoglycemia protocol Marijuana abuse - UDS: + cocaine & marijuana HTN - Amlodipine 2.5mg po daily Electrolyte abnormality - K+2.9, repleted - Continue to monitor GI/DVT ppx - Heparin - Protonix Dispo: Patient is stable for discharge to home per Dr. Weaver and Dr. Alfaro. Patient must continue home medications and must continue a bland and high-fiber diet. Patient must make an appointment with primary care doctor, Dr. Weaver, and GI, Dr. Alfaro, within one week of discharge for continued care and to follow up biopsy results. Patient must also continue new medications as recommended by GI: Analpram Cream 2.5%- apply twice a day for 6 weeks an Sucralfate tablets- 1 gram every 6 hours for 8 weeks. If symptoms worsen or reoccur, patient is instructed to return to the nearest ER. Plan discussed with Dr. Weaver. Opal Barrera, PGY2
[2018-09-08 07:43] LABS: BASO # 0.1 K/uL (0.0-0.2); BASO % 1.3 % (0.0-2.0); EOS # 0.3 K/uL (0.0-0.7); EOS % 4.4 % (0.0-4.0); HEMOGLOBIN 11.3 g/dL (11.0-16.0); LYMPH # 2.5 K/uL (1.0-4.3); LYMPH % 33.7 % (20.0-40.0); MEAN CELL VOLUME 93.1 fL (81.0-99.0); MEAN CORPUSCULAR HEMOGLOBIN 32.6 pg (27.0-31.0); MEAN PLATELET VOLUME 7.6 fL (7.2-11.7); MONO # 0.5 K/uL (0.0-0.8); MONO % 6.5 % (0.0-10.0); NEUT % 54.1 % (50.0-75.0); RBC 3.46 Mil/uL (3.80-5.20); RED CELL DISTRIBUTION WIDTH 13.6 % (11.5-14.5); WHITE BLOOD COUNT 7.4 K/uL (4.8-10.8)
[2018-09-08 07:46] VITALS: BP 109/66; PULSE 67; TEMP 98.4
[2018-09-08] MEDS: Sucralfate 1 gm/10 ml Oral Susp UD PO SCH (08:00)
[2018-09-08 08:01] LABS: ALB/GLOB RATIO 1.4 (1.0-2.1); ALBUMIN 3.2 g/dL (3.5-5.0); ALT/SGPT 22 U/L (9-52); AST/SGOT 17 U/L (14-36); BLOOD UREA NITROGEN 7 mg/dL (7-17); CALCIUM 8.6 mg/dl (8.6-10.4); GFR NON-AFRICAN AMERICAN > 60
[2018-09-08] MEDS ORDERED: Potassium Chloride 20 mEq ER Tab PO ONE (10:00)
[2018-09-08] MEDS: Potassium Chloride 20 mEq ER Tab PO SCH ×2 (11:15→14:49)
--- NOTE | 2018-09-08 13:31 | PN ---
DATE: 09/08/2018 LOCATION: 352, bed 2. SUBJECTIVE: This is a 58-year-old female, seen and examined in rounds without significant clinical changes or reported active bleeding with period of abdominal pain on and off with mild nausea and dyspepsia. The entire chart is reviewed including but not limited to the most recent lab results and today's lab results showed normal white blood cells, normal hemoglobin, but hematocrit 32.2, potassium 2.9, albumin 3.2, and total protein of 5.6 PHYSICAL EXAMINATION: GENERAL: A 58-year-old female, awake, alert, oriented, very emotional. VITAL SIGNS: Afebrile with pulse of 62, respiratory rate 20-22, blood pressure 110/68. HEENT: Showed mildly pale, dry oral mucous membrane. Nonicteric sclerae. LUNGS: Few scattered crepitations. Decreased air entry at bases. HEART: Positive S1 and S2. ABDOMEN: Soft with mild generalized tenderness. No mass or organomegaly. No rebound tenderness or guarding. EXTREMITIES: Without significant clubbing, cyanosis or edema. NEUROLOGICAL: No new reported neurological deficits, sensory or motor. IMPRESSION: 1. Re-exacerbation of peptic ulcer disease. 2. Dehydration. 3. Known history of schizophrenia, hypothyroidism, and severe anxiety syndrome with bipolar disorder by history. SUGGESTIONS: 1. Continue current management. 2. Advance diet. 3. Antireflux measures. Zana Charles MD
--- NOTE | 2018-09-14 07:03 | DS ---
HOSPITAL COURSE: Ms. Molina presented to the hospital with chief complaint of nausea, vomiting, persistent abdominal pain. The patient placed on bed rest, Protonix, seen by the cafeteria assistant, Dr. Alfaro. The patient continued to vomit for a few days. The patient eventually showed improvement in gastritis. The patient discharged and will follow up. DISCHARGE DIAGNOSES: Gastritis, severe, colitis. Jourdan Weaver MD
== END 2018-09-08 16:05 | disposition home or self-care (01) | DRG 392 ==
LOC: C.ER 19:59 → C.3T 23:15 → OBSVTOIN 09-05 11:07
PROVIDERS: ADMIT Internal Medicine Pulmonary Disease; ATTEND Internal Medicine Pulmonary Disease
PROC: 0DB68ZX Excision of Stomach, Via Natural or Artificial Opening Endoscopic, Diagnostic (ICD-10-PCS; principal; 2018-09-06 09:00)
PROC: 0DBM8ZX Excision of Descending Colon, Via Natural or Artificial Opening Endoscopic, Diagnostic (ICD-10-PCS; 2018-09-07)
DX: K29.50 Unspecified chronic gastritis without bleeding (principal); K52.9 Noninfective gastroenteritis and colitis, unspecified; E86.0 Dehydration; K58.9 Irritable bowel syndrome, unspecified; K21.0 Gastro-esophageal reflux disease with esophagitis; K57.30 Diverticulosis of large intestine without perforation or abscess without bleeding; K44.9 Diaphragmatic hernia without obstruction or gangrene; E03.9 Hypothyroidism, unspecified; K64.8 Other hemorrhoids; N28.9 Disorder of kidney and ureter, unspecified; K64.4 Residual hemorrhoidal skin tags; F33.9 Major depressive disorder, recurrent, unspecified; F31.30 Bipolar disorder, current episode depressed, mild or moderate severity, unspecified; F20.9 Schizophrenia, unspecified; F41.1 Generalized anxiety disorder; F12.10 Cannabis abuse, uncomplicated; G89.29 Other chronic pain; R13.10 Dysphagia, unspecified; F10.11 Alcohol abuse, in remission; F41.0 Panic disorder [episodic paroxysmal anxiety]; J44.9 Chronic obstructive pulmonary disease, unspecified; F17.210 Nicotine dependence, cigarettes, uncomplicated; Z87.11 Personal history of peptic ulcer disease; Z90.49 Acquired absence of other specified parts of digestive tract; Z79.899 Other long term (current) drug therapy